=== PATIENT | female | born 1990 | race Asian ===

== ENCOUNTER 2020-02-04 21:20 | Outpatient (REF) | payer SELFPAY ==
[2020-02-08 15:47] LABS: Chlamydia Result Negative (Negative); GC Result Negative (Negative)
== END 2020-02-04 21:40 ==
LOC: NCHCN 21:20
PROVIDERS: PCP Physician Assistant Medical; Visit Provider Physician Assistant Medical
DX: Z11.3 Encounter for screening for infections with a predominantly sexual mode of transmission (principal)
CPT/HCPCS: 87491; 87591

== ENCOUNTER 2020-08-30 13:55 | Outpatient (REF) | payer SELFPAY ==
[2020-08-30 22:07] LABS: HCT 38.1 % (36.0-46.0); HGB 12.4 g/dL (11.2-15.7); MCH 29.9 pg (27.0-33.0); MCHC 32.5 % (32.0-36.0); MCV 91.8 fL (80-95); MPV 10.5 fL (8.0-11.0); Platelet Count 258 10^3/uL (130-400); RBC 4.15 10^6/uL (3.93-5.22); RDW 12.1 % (11.7-14.6); RDW-SD 40.8 fL; WBC 7.31 10^3/uL (4.4-10.8)
[2020-08-30 22:27] LABS: ALT 24 U/L (14-59); AST 14 U/L (15-37); Albumin 3.9 g/dL (3.4-5.0); Alkaline Phosphatase 45 U/L (46-116); Anion Gap 12.1 mmol/L (3-11); BUN 16 mg/dL (7-18); Bilirubin, Total 0.5 mg/dL (0.2-1.0); CO2 22.9 mmol/L (21.0-32.0); CREATININE 0.7 mg/dL (0.55-1.02); Calcium 8.8 mg/dL (8.5-10.1); Chloride 105 mmol/L (98-107); Glucose 77 mg/dL (74-106); HCG Quant, Pregnancy 16 mIU/mL (1-3); Potassium 4.1 mmol/L (3.5-5.1); Sodium 140 mmol/L (136-145); Total Protein 7.4 g/dL (6.4-8.2)
== END 2020-08-30 13:56 | disposition home or self-care (01) ==
LOC: LBN 13:55
PROVIDERS: PCP Physician Assistant Medical; Visit Provider Nurse Practitioner Family
DX: Z33.1 Pregnant state, incidental (principal); R82.998 Other abnormal findings in urine
CPT/HCPCS: 80053; 85027; 84702; 87086

== ENCOUNTER 2020-10-17 23:44 | Emergency (ER) | payer SELFPAY ==
[2020-10-17 23:48] VITALS: BP 126/86; PULSE 90; RESP 18; TEMP 36.7; O2SAT 100
[2020-10-18] VITALS (18 sets, daily range): BP systolic 104–109; BP diastolic 58–61; PULSE 70–71; O2SAT 98–100
[2020-10-18 00:15] LABS: Bilirubin Negative (Negative); Blood Negative (Negative); Clarity Clear (Clear); Glucose Negative (Negative); Ketones Negative (Negative); Leukocyte Esterase Negative (Negative); Nitrite Negative (Negative); Specific Gravity 1.015 (1.005-1.025); Urobilinogen 0.2 EU/dL (Up TO 0.2)
[2020-10-18] MEDS: Normal Saline 1,000 ML 1000 ML IV (00:16)
[2020-10-18 00:18] LABS: Lactate 0.9 mmol/L (0.6-1.4)
[2020-10-18 00:20] LABS: Abs Immature Grans 0.01 10^3/uL (0.0-0.06); Absolute Basophil Count 0.03 10^3/uL (0.0-0.2); Absolute Eosinophil Count 0.25 10^3/uL (0.0-0.7); Absolute Lymphocyte Count 2.62 10^3/uL (1.2-3.4); Absolute Monocyte Count 0.62 10^3/uL (0.1-0.8); Absolute Neutrophil Count 3.61 10^3/uL (1.2-6.7); Basophils % 0.4; Eosinophils % 3.5; HCT 37.1 % (36.0-46.0); HGB 12.1 g/dL (11.2-15.7); Immature Grans % 0.1; Lymphocytes % 36.7; MCH 30.5 pg (27.0-33.0); MCHC 32.6 % (32.0-36.0); MCV 93.5 fL (80-95); MPV 9.5 fL (8.0-11.0); Monocytes % 8.7; Neutrophils % 50.6; Nucleated RBC 0 %; Platelet Count 239 10^3/uL (130-400); RBC 3.97 10^6/uL (3.93-5.22); RDW 12.1 % (11.7-14.6); RDW-SD 41.9 fL; WBC 7.14 10^3/uL (4.4-10.8)
[2020-10-18 00:38] LABS: ALT 26 U/L (14-59); AST 13 U/L (15-37); Albumin 3.9 g/dL (3.4-5.0); Alkaline Phosphatase 39 U/L (46-116); Anion Gap 8.5 mmol/L (3-11); BUN 9 mg/dL (7-18); Bilirubin, Total 0.2 mg/dL (0.2-1.0); CO2 26.5 mmol/L (21.0-32.0); CREATININE 0.7 mg/dL (0.55-1.02); Chloride 103 mmol/L (98-107); Glucose 94 mg/dL (74-106); Magnesium 2.1 mg/dL (1.8-2.4); Potassium 3.1 mmol/L (3.5-5.1); Sodium 138 mmol/L (136-145); Total Protein 7.6 g/dL (6.4-8.2)
[2020-10-18 00:39] LABS: Lipase 103 U/L (73-393)
--- NOTE | 2020-10-18 01:00 | DI.CT_ITS ---
Exam(s) CT ABDOMEN PELVIS W EXAM: CT ABDOMEN PELVIS W INDICATION: Miscarriage, RLQ abd pain.. COMPARISON: No exams were available for comparison TECHNIQUE: FINDINGS: CT examination of the abdomen and pelvis was performed with a bolus infusion of 95 cc of Omnipaque 35 0. Images obtained through the lung bases are unremarkable except for an incidental 4 millimeter non calcified pulmonary nodule, of unlikely to be of significance in a nonsmoker in this age group. Plea se correlate clinically.. The liver is unremarkable in appearance. Gallbladder and bile ducts are CT normal. Pancreas appears normal. Spleen is unremarkable in appearance. Adrenals appear normal. The kidneys are unremarkable with no evidence of hydronephrosis, nephrolithiasis, or renal mass.. Ur inary bladder distended but otherwise unremarkable. Abdominal aorta is of normal diameter and no major vascular abnormality is seen. No abdominal wall hernia. No abdominal or pelvic adenopathy. Trace free fluid noted in the pelvis. Essentially unremarkable appearance of the ovaries. Appendix is normal. No evidence of diverticulitis or bowel obstruction. IMPRESSION: RADIATION DOSE DELIVERED: 619.77mGy.cm Total DLP 619.77mGy.cm Total DLP 13.55mGy CTDIvol RADIATION OPTIMIZATION: All CT scans at this facility use at least one of these dose optimization te chniques: automated exposure control; mA and/or kV adjustment per patient size (includes targeted exa ms where dose is matched to clinical indication); or iterative reconstruction.
[2020-10-18 01:07] LABS: HCG Quant, Pregnancy 23387 mIU/mL (1-3)
--- NOTE | 2020-10-18 01:37 | W.ED.GENAD ---
Discharge Plan Disposition Patient Disposition: HOME Condition: Good Discharge Details Clinical Impression: Abdominal pain, Incomplete miscarriage Primary Care Provider: Alan Peterson V ED Provider: Mack Anderson Discharge Instructions Instructions: Abdominal Pain (ED) Additional Instructions: At this time the CAT scan shows no evidence of appendicitis, but you still do have products of conception that are retained. He also has a small ovarian cyst which is likely a component of the cause of your pain on the right. Please take Tylenol or Motrin as needed for pain and follow-up closely with your OB doctor tomorrow. If you notice any worsening of your symptoms, or any new symptoms such as vomiting, diarrhea, fever, chills, shortness of breath, chest pain, numbness, weakness, or fainting , please return immediately to the emergency department for reevaluation. Please follow up with your primary care provider as soon as possible for reassessment and reevaluation. As always, it was a pleasure participating in your medical care today. Referrals: Macey Murphy DO [OSTEOPATHIC DOCTOR] - Medical Decision Making This is a pleasant 29-year-old female who presents today for abdominal pain. Patient is 9 to 10 weeks , however on her last ultrasound week ago they noticed that there was no heartbeat, and an empty gestational sac. Patient has not had any vaginal discharge or vaginal bleeding. She had no pain until tonight when she developed lower generalized abdominal pain which she describes as crampy and achy that comes and goes. Currently she states that she is pain-free. She did have a few episodes of vomiting at home earlier tonight. She denies any dysuria, diarrhea, hematemesis. She has been talking with her OB doctor about potential D&C. She denies any previous abdominal surgeries. This was her first . No other complaints at this time. No other modifying factors. Physical exam demonstrates very reassuring nontender nonsurgical abdomen. No vaginal discharge. Bedside ultrasound shows no evidence of fetus in the uterus. Differential at this time includes appendicitis, pain or complication from miscarriage, unlikely heterotopic . We will get an hCG level from serum, get a CT scan of the abdomen, monitor closely and reassess. 2:54 AM Laboratory work-up is returned and is relatively unremarkable. No white count bandemia or left shift. Potassium minimally low. Beta-hCG is 23,000. Urinalysis negative for infection. CT scan shows evidence of a small right ovarian cyst, and an enlarged complex uterus with concern for retained products of conception. Patient's pain remains notably unremarkable, she feels well and still does not want any pain medicines. This time symptoms are inconsistent with torsion, heterotopic , acute surgical pathology in the abdomen. Patient stable for discharge. Patient will be discharged home with recommendations for close follow-up with PCP/OB tomorrow or the next day. Discussed red flags which to return. Patient will likely need D&C this week. I have extensively reviewed the treatment plan and discharge instructions with the patient and their family. I have addressed all patient concerns at this time. The patient and family was made aware of what symptoms to monitor for that would warrant a return to the emergency department. Discussed the plan with the patient and family, they demonstrate verbal understanding and agreement with our assessment and plan at this time. The documentation in this chart was dictated using [employer] dictation software. Please excuse any dictation errors. FINDINGS: Liver: Normal. No mass. Gallbladder and bile ducts: Normal. No calcified stones. No ductal dilation. Pancreas: Normal. No ductal dilation. Spleen: Normal. No splenomegaly. Adrenal glands: Normal. No mass. Kidneys and ureters: Normal. No hydronephrosis. Stomach and bowel: Unremarkable. No obstruction. No mucosal thickening. Appendix: No evidence of appendicitis. Intraperitoneal space: Minimal cul-de-sac fluid. No free air. No significant fluid collection. Vasculature: Unremarkable. No abdominal aortic aneurysm. Lymph nodes: Unremarkable. No enlarged lymph nodes. Urinary bladder: Unremarkable as visualized. Reproductive: Enlarged heterogeneous uterus with complex heterogeneous thickened endometrium. 13 mm right ovarian cyst Bones/joints: Unremarkable. No acute fracture. Soft tissues: Unremarkable. IMPRESSION: Enlarged complex uterus with complex appearance in the endometrium. Consider pelvic ultrasound for further characterization. Retained products of conception not excluded No CT evidence for appendicitis 13 mm right ovarian cyst. Minimal cul-de-sac fluid Thank you for allowing us to participate in the care of your patient. Dictated and Authenticated by: Pee Lopez MD 10/18/2020 2:40 AM Eastern Time ([place] & [place]) HPI General Date/Time Provider Initiated Documentation: 10/17/20 23:50. HPI Narrative: This is a pleasant 29-year-old female who presents today for abdominal pain. Patient is 9 to 10 weeks , however on her last ultrasound week ago they noticed that there was no heartbeat, and an empty gestational sac. Patient has not had any vaginal discharge or vaginal bleeding. She had no pain until tonight when she developed lower generalized abdominal pain which she describes as crampy and achy that comes and goes. Currently she states that she is pain-free. She did have a few episodes of vomiting at home earlier tonight. She denies any dysuria, diarrhea, hematemesis. She has been talking with her OB doctor about potential D&C. She denies any previous abdominal surgeries. This was her first . No other complaints at this time. No other modifying factors. Related Data Allergies Allergy/AdvReac Type Severity Reaction Status Date / Time No Known Allergies Allergy Verified 10/17/20 23:58 General Stated Complaint: Abd Prob HELEN: 3 Review of Systems All systems reviewed & are unremarkable except as noted in HPI and below PFSH Medical History Early stage of Nausea and vomiting during Social History Smoking/Tobacco Use Status: Never Smoking risk assessment performed?: Yes Alcohol Intake: never Substance use type: does not use Do you feel safe at home: Yes Do you feel safe in your relationship?: Yes Exam Narrative Exam Narrative: 1.Const: Well-nourished, Well-developed, appearing stated age 2.Eyes: PERRL, no conjunctival injection, and symmetrical lids. 3.ENT: Atraumatic external nose and ears. Moist MM. Neck: Symmetric, trachea midline, No thyromegaly. 4.CVS: +S1/S2, No murmurs or gallops. Peripheral pulses 2+ and equal in all extremities. Brisk capillary refill in all extremities. 5.RESP: Unlabored respiratory effort. Clear to auscultation bilaterally. No wheezes rales or rhonchi 6.GI: Soft, Nontender/Nondistended, No hepatosplenomegaly. No guarding or rebound. No tenderness in the pelvic region, no pain at McBurney's point, negative Molina sign. 7.MSK: Normocephalic/Atraumatic, Extremities w/o deformity or ttp No cyanosis or clubbing, Normal movement of all extremities 8.Skin: Warm, Dry. No rashes or lesions. 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 Sensation grossly intact, no focal neurologic deficits. 10.Psych: (AAO) x3. Appropriate mood and affect Course Vital Signs Vital signs: Vital Signs Temperature 36.7 C 10/17/20 23:48 Pulse 90 10/17/20 23:48 Respiratory Rate 18 10/17/20 23:48 Blood Pressure 126/86 10/17/20 23:48 Pulse Oximetry 100 10/17/20 23:48 Temperature 36.7 C 10/17/20 23:48 Temperature Source Skin 10/17/20 23:48 Pulse 90 10/17/20 23:48 Respiratory Rate 18 10/17/20 23:48 Respiratory Effort Non-Labored 10/17/20 23:59 Blood Pressure 126/86 10/17/20 23:48 Blood Pressure Position Sitting 10/17/20 23:48 Pulse Oximetry 100 10/17/20 23:48 Oxygen Delivery Method Room Air 10/17/20 23:48 Oxygen Flow Rate 0 10/17/20 23:48 Pain Level 9 10/17/20 23:59 Lab/Test Results Lab/Test Results: Laboratory Tests Range/Units 10/18/20 10/18/20 10/18/20 00:00 00:10 00:10 WBC (4.4-10.8) 10^3/uL 7.14 RBC (3.93-5.22) 10^6/uL 3.97 Hgb (11.2-15.7) g/dL 12.1 Hct (36.0-46.0) % 37.1 MCV (80-95) fL 93.5 MCH (27.0-33.0) pg 30.5 MCHC (32.0-36.0) % 32.6 RDW (11.7-14.6) % 12.1 Plt Count (130-400) 10^3/uL 239 MPV (8.0-11.0) fL 9.5 Immature Gran % 0.1 Neutrophils % 50.6 Lymphocytes % 36.7 Monocytes % 8.7 Eosinophils % 3.5 Basophils % 0.4 Nucleated RBC % % 0 Absolute Neutrophils (1.2-6.7) 10^3/uL 3.61 Absolute Lymphocytes (1.2-3.4) 10^3/uL 2.62 Absolute Monocytes (0.1-0.8) 10^3/uL 0.62 Absolute Eosinophils (0.0-0.7) 10^3/uL 0.25 Absolute Basophils (0.0-0.2) 10^3/uL 0.03 VBG Lactate (0.6-1.4) mmol/L Sodium (136-145) mmol/L 138 Potassium (3.5-5.1) mmol/L 3.1 L Chloride (98-107) mmol/L 103 Carbon Dioxide (21.0-32.0) mmol/L 26.5 Anion Gap (3-11) mmol/L 8.5 BUN (7-18) mg/dL 9 Creatinine (0.55-1.02) mg/dL 0.7 Estimated GFR/1.73 m2 (mL/min/1.73m2) >= 60.00 Glucose (74-106) mg/dL 94 Calcium (8.5-10.1) mg/dL 9.0 Magnesium (1.8-2.4) mg/dL 2.1 Total Bilirubin (0.2-1.0) mg/dL 0.2 AST (15-37) U/L 13 L ALT (14-59) U/L 26 Alkaline Phosphatase (46-116) U/L 39 L Total Protein (6.4-8.2) g/dL 7.6 Albumin (3.4-5.0) g/dL 3.9 Lipase (73-393) U/L Beta HCG, Quant (1-3) mIU/mL Urine Color (Yellow) Yellow Urine Clarity (Clear) Clear Urine pH (5-8) 7.0 Ur Specific [place] (1.005-1.025) 1.015 Urine Protein (Negative) mg/dL Negative Urine Ketones (Negative) mg/dL Negative Urine Blood (Negative) Negative Urine Nitrite (Negative) Negative Urine Bilirubin (Negative) Negative Urine Urobilinogen (Up TO 0.2) EU/dL 0.2 Ur Leukocyte Esterase (Negative) Negative Urine Glucose (Negative) mg/dL Negative Patient ABO/Rh Range/Units 10/18/20 10/18/20 10/18/20 00:10 00:10 00:10 WBC (4.4-10.8) 10^3/uL RBC (3.93-5.22) 10^6/uL Hgb (11.2-15.7) g/dL Hct (36.0-46.0) % MCV (80-95) fL MCH (27.0-33.0) pg MCHC (32.0-36.0) % RDW (11.7-14.6) % Plt Count (130-400) 10^3/uL MPV (8.0-11.0) fL Immature Gran % Neutrophils % Lymphocytes % Monocytes % Eosinophils % Basophils % Nucleated RBC % % Absolute Neutrophils (1.2-6.7) 10^3/uL Absolute Lymphocytes (1.2-3.4) 10^3/uL Absolute Monocytes (0.1-0.8) 10^3/uL Absolute Eosinophils (0.0-0.7) 10^3/uL Absolute Basophils (0.0-0.2) 10^3/uL VBG Lactate (0.6-1.4) mmol/L 0.9 Sodium (136-145) mmol/L Potassium (3.5-5.1) mmol/L Chloride (98-107) mmol/L Carbon Dioxide (21.0-32.0) mmol/L Anion Gap (3-11) mmol/L BUN (7-18) mg/dL Creatinine (0.55-1.02) mg/dL Estimated GFR/1.73 m2 (mL/min/1.73m2) Glucose (74-106) mg/dL Calcium (8.5-10.1) mg/dL Magnesium (1.8-2.4) mg/dL Total Bilirubin (0.2-1.0) mg/dL AST (15-37) U/L ALT (14-59) U/L Alkaline Phosphatase (46-116) U/L Total Protein (6.4-8.2) g/dL Albumin (3.4-5.0) g/dL Lipase (73-393) U/L 103 Beta HCG, Quant (1-3) mIU/mL 93326 H Urine Color (Yellow) Urine Clarity (Clear) Urine pH (5-8) Ur Specific [place] (1.005-1.025) Urine Protein (Negative) mg/dL Urine Ketones (Negative) mg/dL Urine Blood (Negative) Urine Nitrite (Negative) Urine Bilirubin (Negative) Urine Urobilinogen (Up TO 0.2) EU/dL Ur Leukocyte Esterase (Negative) Urine Glucose (Negative) mg/dL Patient ABO/Rh A Positive
[2020-10-18] MEDS: Omnipaque 350 MG/ML 100 ML BTL IJ (01:40)
[2020-10-18] MEDS: Normal Saline - Diluent 50 ML VIAL IV (01:41)
[2020-10-18] MEDS: Normal Saline Flush 10 ML SYR IVP (01:42)
--- NOTE | 2020-10-18 02:40 | DI.VRAD_ITS ---
PROCEDURE INFORMATION: Exam: CT Abdomen And Pelvis With Contrast Exam date and time: 10/18/2020 1:10 AM Age: 29 years old Clinical indication: Abdominal pain; Localized; Right lower quadrant (rlq); Patient HX: Miscarriage, rlq abd pain. TECHNIQUE: Imaging protocol: Computed tomography of the abdomen and pelvis with contrast. Radiation optimization: All CT scans at this facility use at least one of these dose optimization techniques: automated exposure control; mA and/or kV adjustment per patient size (includes targeted exams where dose is matched to clinical indication); or iterative reconstruction. Contrast material: OMNIPAQUE 350; Contrast volume: 95 ml; Contrast route: INTRAVENOUS (IV); COMPARISON: No relevant prior studies available. FINDINGS: Liver: Normal. No mass. Gallbladder and bile ducts: Normal. No calcified stones. No ductal dilation. Pancreas: Normal. No ductal dilation. Spleen: Normal. No splenomegaly. Adrenal glands: Normal. No mass. Kidneys and ureters: Normal. No hydronephrosis. Stomach and bowel: Unremarkable. No obstruction. No mucosal thickening. Appendix: No evidence of appendicitis. Intraperitoneal space: Minimal cul-de-sac fluid. No free air. No significant fluid collection. Vasculature: Unremarkable. No abdominal aortic aneurysm. Lymph nodes: Unremarkable. No enlarged lymph nodes. Urinary bladder: Unremarkable as visualized. Reproductive: Enlarged heterogeneous uterus with complex heterogeneous thickened endometrium. 13 mm right ovarian cyst Bones/joints: Unremarkable. No acute fracture. Soft tissues: Unremarkable. IMPRESSION: Enlarged complex uterus with complex appearance in the endometrium. Consider pelvic ultrasound for further characterization. Retained products of conception not excluded No CT evidence for appendicitis 13 mm right ovarian cyst. Minimal cul-de-sac fluid Dictated and Authenticated by: Pee Lopez MD. Ordering:LANI Giron MD
--- NOTE | 2020-10-18 06:46 | NUR.NOTE ---
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
== END 2020-10-18 02:57 | disposition home or self-care (01) ==
PROVIDERS: Emergency Provider Student in an Organized Health Care Education/Training Program; PCP Physician Assistant Medical
DX: O03.4 Incomplete spontaneous abortion without complication (principal); R10.9 Unspecified abdominal pain
CPT/HCPCS: 80053; 83690; 86900; 86901; 96360; 99285; 74177; 81003; 83605; 83735; 84702; 85025; 99284; J3490

== ENCOUNTER 2020-10-19 02:00 | Outpatient (CLI) | payer SELFPAY ==
[2020-10-19 10:36] LABS: Abs Immature Grans 0.01 10^3/uL (0.0-0.06); Absolute Basophil Count 0.02 10^3/uL (0.0-0.2); Absolute Eosinophil Count 0.17 10^3/uL (0.0-0.7); Absolute Neutrophil Count 4.17 10^3/uL (1.2-6.7); Basophils % 0.3; Eosinophils % 2.7; HCT 37.1 % (36.0-46.0); HGB 12.1 g/dL (11.2-15.7); Immature Grans % 0.2; Lymphocytes % 23.5; MCH 30.4 pg (27.0-33.0); MCHC 32.6 % (32.0-36.0); MCV 93.2 fL (80-95); MPV 9.6 fL (8.0-11.0); Monocytes % 7.8; Neutrophils % 65.5; Nucleated RBC 0 %; Platelet Count 223 10^3/uL (130-400); RBC 3.98 10^6/uL (3.93-5.22); RDW 12.1 % (11.7-14.6); RDW-SD 42.2 fL; WBC 6.37 10^3/uL (4.4-10.8)
[2020-10-19 16:07] LABS: Source Nasal/Nares
[2020-10-19 21:55] LABS: COVID-19 PCR Negative (Negative)
== END 2020-10-19 02:01 | disposition home or self-care (01) ==
LOC: LBO 02:01
PROVIDERS: PCP Physician Assistant Medical; Visit Provider Obstetrics & Gynecology
DX: O03.9 Complete or unspecified spontaneous abortion without complication (principal); Z20.822 Contact with and (suspected) exposure to COVID-19; Z01.818 Encounter for other preprocedural examination; Z01.812 Encounter for preprocedural laboratory examination
CPT/HCPCS: 36415; 86850; 86900; 86901; 87635; 85025

== ENCOUNTER 2020-10-20 06:20 | Day surgery (SDC) | payer SELFPAY ==
[2020-10-20 06:25] VITALS: BP 111/67; PULSE 78; RESP 16; TEMP 36.8; O2SAT 99
[2020-10-20] MEDS: Doxycycline Hyclate 100 MG CAP 200 MG PO (06:57)
[2020-10-20] MEDS: Lactated Ringers 1,000 ML 125 ML IV (06:58)
--- NOTE | 2020-10-20 07:04 | W.ANESPRE ---
General Info Date of Service Date Performed: 10/20/20 Height: 5 ft 7 in Weight: 64.3 kg Body Mass Index (BMI): 22.1 Surgical Procedure: Operation Date: 10/20/20 07:40 Proposed Procedures Side Surgeon p Dilation & Curettage with Suction Macey Murphy DO Meds Allergies and Home Medications Allergies Allergy/AdvReac Type Severity Reaction Status Date / Time No Known Allergies Allergy Verified 10/20/20 06:35 Home Medication Medication Instructions Recorded Unknown [No Known Home Meds] 10/18/20 Current Visit Medications: Current Medications Generic Name Dose Route Start Last Admin Trade Name Freq PRN Reason Stop Dose Admin Doxycycline Hyclate 200 mg 10/20/20 06:00 10/20/20 06:57 Doxycycline Hyclate 100 Mg Cap PO 10/20/20 16:00 200 mg PREOP LIZETT Administration Ringer's Solution 1,000 mls @ 125 mls/hr 10/20/20 06:00 10/20/20 06:58 IV 11/18/20 23:59 125 mls/hr INFUSION LIZETT Administration IV Miscellaneous Supplies 1 each 10/20/20 06:00 Iv Access IV 11/18/20 23:59 DIRECTED LIZETT Sodium Chloride 0 ml 10/20/20 06:00 Normal Saline Flush 10 Ml Syr IV 11/18/20 23:59 PRN PRN Sodium Chloride 0 ml 10/20/20 06:00 Normal Saline 10 Ml Vial IJ 11/18/20 23:59 DIRECTED PRN Sterile Water 0 ml 10/20/20 06:00 Water,Injection,Sterile 10 Ml Vial IJ 11/18/20 23:59 DIRECTED PRN PFSH Active Problems Active Problems: Problem Status Onset Code Abdominal pain R10.9 Incomplete miscarriage O03.4 Nausea and vomiting during O21.9 Early stage of Z34.90 Medical History Medical History Early stage of Nausea and vomiting during Tobacco Smoking/Tobacco Use Status: Never Alcohol Alcohol Intake: never Substance Use Substance use type: does not use Vital Signs and Lab Results Vital Signs Most Recent Vital Signs in EMR: Most Recent Vital Signs Temp Pulse Resp BP Pulse Ox 36.8 C 78 16 111/67 99 10/20/20 06:25 10/20/20 06:25 10/20/20 06:25 10/20/20 06:25 10/20/20 06:25 Lab Results Blood Type / Crossmatch: Patient ABO/Rh A Positive 10/19/20 10:10 10/19/20 Antibody Screen NEGATIVE 10/19/20 10:10 10/19/20 Complete Blood Count: White Blood Count 6.37 10^3/uL (4.4-10.8) 10/19/20 10:10 10/19/20 Red Blood Count 3.98 10^6/uL (3.93-5.22) 10/19/20 10:10 10/19/20 Hemoglobin 12.1 g/dL (11.2-15.7) 10/19/20 10:10 10/19/20 Hematocrit 37.1 % (36.0-46.0) 10/19/20 10:10 10/19/20 Platelet Count 223 10^3/uL (130-400) 10/19/20 10:10 10/19/20 Venous Blood Lactate 0.9 mmol/L (0.6-1.4) 10/18/20 00:10 10/18/20 Complete Metabolic Panel: Sodium Level 138 mmol/L (136-145) 10/18/20 00:10 10/18/20 Potassium Level 3.1 mmol/L (3.5-5.1) L 10/18/20 00:10 10/18/20 Chloride Level 103 mmol/L (98-107) 10/18/20 00:10 10/18/20 Carbon Dioxide Level 26.5 mmol/L (21.0-32.0) 10/18/20 00:10 10/18/20 Blood Urea Nitrogen 9 mg/dL (7-18) 10/18/20 00:10 10/18/20 Creatinine 0.7 mg/dL (0.55-1.02) 10/18/20 00:10 10/18/20 Estimated GFR/1.73 m2 >= 60.00 (mL/min/1.73m2) 10/18/20 00:10 10/18/20 Magnesium Level 2.1 mg/dL (1.8-2.4) 10/18/20 00:10 10/18/20 Calcium Level 9.0 mg/dL (8.5-10.1) 10/18/20 00:10 10/18/20 Albumin 3.9 g/dL (3.4-5.0) 10/18/20 00:10 10/18/20 Glucose Level 94 mg/dL (74-106) 10/18/20 00:10 10/18/20 Liver Function Panel: Alanine Aminotransferase (ALT/SGPT) 26 U/L (14-59) 10/18/20 00:10 10/18/20 Aspartate Amino Transf (AST/SGOT) 13 U/L (15-37) L 10/18/20 00:10 10/18/20 Coagulation Panel: No Data to Display Cardiac Panel: No Data to Display Arterial Blood Gas: No Data to Display Venous Blood Gas: No Data to Display Pancreas Panel: Lipase 103 U/L (73-393) 10/18/20 00:10 10/18/20 Thyroid Panel: No Data to Display Infectious Disease: Coronavirus (COVID-19)(PCR) Negative (Negative) 10/19/20 09:35 10/19/20 Coronavirus 2019 Source Nasal/Nares 10/19/20 09:35 10/19/20 Blood Cultures: No Data to Display Toxicology Panel: No Data to Display Panel: Beta HCG, Quantitative 68675 mIU/mL (1-3) H 10/18/20 00:10 10/18/20 Anesthesia Assessment and Plan Anesthesia History Personal History: No History of Anesthesia Complications Family History: No Family History of Anesthesia Complications Exercise Tolerance Exercise Tolerance: Metabolic Equivalents>4 Pertinent Negatives Pertinent Negatives: No Symptoms of GERD, No Major Cardiovascular Symptoms or Complaints, No Major Pulmonary Symptoms or Complaints and No History of CVA/TIA Cardiac & Pulmonary Exam Cardiac Exam: Normal S1/S2 Heart Sounds Pulmonary Exam: Clear Bilateral Breath Sounds Airway Exam Known Difficult Airway: No Mallampati Class: 1 Mouth Opening: Normal (> 3cm) Thyromental Distance: Greater than 3 cm Neck Range of Motion: Full ROM Neck Circumference: Normal Teeth Condition: Normal Dentition ASA Classification ASA Score: ASA 2 Emergency Case?: No NPO Status NPO Status: NPO Clears >2 hours, Solids >8 hours Status Status: Not Relevant due to Medical History Anesthesia Plan Resuscitation Status: Full Code Anesthesia Technique: General Anesthesia Airway Planned: Natural Airway Pain Management: Surgeon and patient request nerve block Monitors Used: Standard Monitors
[2020-10-20 07:06] VITALS: BMI 22.1
--- NOTE | 2020-10-20 07:40 | POCSPONT_PTH ---
PATIENT: Maday Zapata LOC: [facility] U#:[id number] AGE/SX: 29/F ROOM: RE10/20/[address]: Macey Murphy DO : 1990 BED: DIS: 10/20/2020 SPEC #: [id number] RECD: 10/20/20 12:43 STATUS: ARABELLA REQ #: [id number] YURI: 10/20/20 07:[address]: Macey Murphy DEPT: Surgical Specimen RECD BY: Thania Ocampo ENTERED: 10/20/20 12:44 SP TYPE: POCSPONT ERNESTO DR: Alan Peterson V Tissues: 1 - ,SPONTANEOUS Procedures: GROSS AND MICRO LEVEL 4 Comments: [id number]
--- NOTE | 2020-10-20 07:59 | W.PM.OP ---
Date of service: 10/20/20 Time of Service: 07:59 Operative Note Operative Note DATE OF PROCEDURE: 10/20/20 PRE-OP DIAGNOSIS: Missed POST-OP DIAGNOSIS: same PROCEDURE: Dilation and curettage with suction SURGEON: Macey Murphy ANESTHESIA TYPE: General:No Airway Refer to Anesthesia Record ESTIMATED BLOOD LOSS: 50 PATHOLOGY: other (Uterine contents) COMPLICATIONS: None Patient was transported to: same day Indications: Missed Findings: Moderate products of conception Procedure Description: Patient was taken the operating suite with an IV running where she is placed in the dorsal supine position. Anesthesia was administered. She was then placed in the modified dorsal lithotomy position and prepped and draped in the usual sterile fashion. Exam under anesthesia revealed a uterus that was midline and mobile approximately 8 weeks size. A weighted speculum was placed into the posterior vaginal vault and a single-tooth tenaculum used to grasp the anterior lip of the cervix. Cervical os dilated to the point that an 8 [place] suction curette could be passed with ease. Uterus sounded to 10 cm. With gentle suction curettage, there was the return of my products of conception. Once suction curette was complete gentle sharp curettage was performed where the coarse cry of the uterus could be felt in all 4 quadrants. A second pass of the suction curette was undertaken for scant tissue. Uterus was then contracted and midline and mobile. There is what feels to be a posterior lower uterine segment fibroid present. This will be evaluated with ultrasound in the non state. Single-tooth tenaculum had been removed as was speculum. Tenaculum sites were hemostatic. Patient awoke from anesthesia and was taken to the same-day surgical area in stable condition. Complications: None apparent EBL: 50 mL Pathology: Uterine contents consistent with products of conception for examination.
[2020-10-20 08:00] VITALS: BP 122/72; PULSE 94; RESP 16; TEMP 36.3; O2SAT 100
--- NOTE | 2020-10-20 08:01 | W.ANESPOSTOP ---
Postoperative Evaluation Date, Time and Location Date Performed: 10/20/20 Time Performed: 08:02 Patient Location: Day Surgery Unit Vital Signs Most Recent Imported Vital Signs: Most Recent Vital Signs Temp Pulse Resp BP Pulse Ox 36.8 C 78 16 111/67 99 10/20/20 06:25 10/20/20 06:25 10/20/20 06:25 10/20/20 06:25 10/20/20 06:25 Most Recent Manually Entered Vital Signs: Adult Blood Pressure: 122/72 Heart Rate: 99 Respirations: 10 Oxygen Saturation (%): 100 Temperature (C): 36.3 C Pain Score (0-10 Scale): 0 Pain Score Most Recent Pain Score: Most Recent Pain Score Pain Level 0 10/20/20 06:25 Assessment Mental Status: Awake (Alert & Oriented to Patient Baseline) Airway and Respiratory Function: Patent airway with normal (patient baseline) respiratory exam Cardiovascular Function: Hemodynamically Stable Hydration Status: Adequately Hydrated Nausea & Vomiting: No Nausea or Vomiting Pain: Pt. Denies Any Pain Peripheral Nerve Block: Patient did not receive a nerve block
[2020-10-20 08:02] VITALS: BP 122/72; PULSE 99; RESP 10; TEMPC 36.3; O2SAT 100
[2020-10-20 08:40] VITALS: BP 109/76; PULSE 74; RESP 18; TEMP 36.2; O2SAT 100
== END 2020-10-20 09:45 | disposition home or self-care (01) ==
PROVIDERS: PCP Physician Assistant Medical; Visit Provider Obstetrics & Gynecology
PROC: (CPT 59820; principal; 2020-10-20 07:30)
DX: O02.1 Missed abortion (principal)
CPT/HCPCS: 59820; 88305; J1100; J1200; J1885; J2001; J2250; J2405

== ENCOUNTER 2021-10-21 15:23 | Outpatient (REF) | payer SELFPAY ==
[2021-10-22 12:36] LABS: COVID-19 RT-PCR UVMMC Result Negative (Negative)
== END 2021-10-21 15:24 | disposition home or self-care (01) ==
LOC: LBN 15:23
PROVIDERS: PCP Physician Assistant Medical; Visit Provider Physician Assistant Medical
DX: J02.9 Acute pharyngitis, unspecified (principal)
CPT/HCPCS: U0003; 87070

== ENCOUNTER 2022-01-17 21:58 | Emergency (ER) | payer BC, SELFPAY ==
[2022-01-17 22:10] VITALS: BP 111/68; PULSE 79; RESP 22; TEMP 36.7; O2SAT 100
--- NOTE | 2022-01-17 22:30 | DI.RAD_ITS ---
Exam(s) XR RIBS LT W PA LAT CHEST EXAM: XR RIBS LT W PA LAT CHEST CLINICAL HISTORY: left chest pain TECHNIQUE: COMPARISON: No exams were available for comparison FINDINGS: PA and lateral views of chest and 2 additional views of the left ribs were obtained. Heart is not en larged. Lungs are clear. No pleural effusion. No rib abnormality seen. IMPRESSION: Negative examination of the chest and left ribs RADIATION DOSE DELIVERED: Total DLP
--- NOTE | 2022-01-17 22:30 | RT.EKG_ITS ---
APPROVED REPORT Exam: Resting ECG Reason for Exam: chest pain Patient Location: E HR:83 bpm ECG Measurements Heart Rate 83 AXIS AZ 140 P 37 QRSd 70 QRS 71 QT 379 T 21 QTc 447 Conclusion Sinus rhythm...normal P axis, V-rate 60- 99 Physician: no stemi
--- NOTE | 2022-01-17 22:40 | ED.GENADUL_ITS ---
Discharge Plan Disposition Patient Disposition: Home Condition: Good Discharge Details Clinical Impression: Pain in rib Primary Care Provider: Alan Peterson V ED Provider: Mack Anderson Home Meds and New Rx's Prescriptions: New cyclobenzaprine 10 mg tablet 10 mg PO TID Qty: 14 0RF No Action ibuprofen 800 mg tablet 800 mg PO Q8H PRNQty: 30 0RF Discharge Instructions Instructions: Chest Wall Pain (ED) Additional Instructions: At this time the x-ray shows no evidence of fracture. I suspect there may be a tiny crack that we can see or you could have a muscle spasm causing the pain. Please take muscle relaxants as needed for breakthrough pain. Please take Tylenol and Motrin use ice or heating pad on your ribs as well. Do not drive, climb ladders, swim, or operate heavy machinery or any firearms while taking the Flexeril. If you notice any worsening of your symptoms, or any new symptoms such as vomiting, diarrhea, fever, chills, shortness of breath, chest pain, numbness, weakness, or fainting , please return immediately to the emergency department for reevaluation. Please follow up with your primary care provider as soon as possible for reassessment and reevaluation. As always, it was a pleasure participating in your medical care today. Referrals: Alan Peterson V [Primary Care Provider] - Discharge Data Discharge Date/Time-TO BE ENTERED AT DEPARTURE: 01/18/22 01:44 Medical Decision Making <Nicho Gomez NP - Last Filed: 01/23/22 15:45> Patient presenting to the emergency department for chief complaint of left chest wall pain. She states this started at work when she was reaching across but denies any heavy lifting. Does state slight worsening with some movement or laying on left side. Patient denies any injury or trauma, rapid heart rate, swelling of hands or feet. Does state some pain with inspiration. Physical exam is unremarkable and could not appreciate reproducible chest pain. She did state some tenderness to palpation of mid axillary line approximately the fifth rib but again I did not appreciate much discomfort when palpating this area. No obvious rash or signs of trauma, and exam is otherwise unremarkable. Suspect chest wall pain or strain but will perform standard ER work-up for chest pain given some pain with inspiration and shortness of breath reported. Pending results we will give patient lidocaine patch and ketorolac. Please see physician interpretation for full interpretation of EKG but upon my review patient is in sinus rhythm with a rate of 83, and no acute ischemic findings are noted <Mack Anderson, - Last Filed: 01/18/22 02:20> Patient presenting to the emergency department for chief complaint of left chest wall pain. She states this started at work when she was reaching across but denies any heavy lifting. Does state slight worsening with some movement or laying on left side. Patient denies any injury or trauma, rapid heart rate, swelling of hands or feet. Does state some pain with inspiration. Physical exam is unremarkable and could not appreciate reproducible chest pain. She did state some tenderness to palpation of mid axillary line approximately the fifth rib but again I did not appreciate much discomfort when palpating this area. No obvious rash or signs of trauma, and exam is otherwise unremarkable. Suspect chest wall pain or strain but will perform standard ER work-up for chest pain given some pain with inspiration and shortness of breath reported. Pending results we will give patient lidocaine patch and ketorolac. Please see physician interpretation for full interpretation of EKG but upon my review patient is in sinus rhythm with a rate of 83, and no acute ischemic findings are noted Dr. Anderson's documentation: Case is signed out awaiting labs and chest x-ray reassessment. On reassessment patient's pain is mildly improved. Laboratory work-up including D-dimer and troponin are normal. EKG stable. Chest x-ray negative for acute process. Patient feels better. She states that the Flexeril helped the most. We will give her some Flexeril for home use. Suspect intercostal spasm or small fracture that cannot be seen on x-ray. No evidence of pneumothorax dissection or ACS. I have extensively reviewed the treatment plan and discharge instructions with the patient and their family. I have addressed all patient concerns at this time. The patient and family was made aware of what symptoms to monitor for that would warrant a return to the emergency department. Discussed the plan with the patient and family, they demonstrate verbal understanding and agreement with our assessment and plan at this time. The documentation in this chart was dictated using [employer] dictation software. Please excuse any dictation errors. FINDINGS: Bones/joints: No acute fracture with attention to the left-sided ribs. Soft tissues: Normal. IMPRESSION: No acute fracture with attention to the left-sided ribs. Sign Out No HPI <KERWIN Zamora Last Filed: 01/23/22 15:45> General Mode of arrival: ambulatory . Date/Time Provider Initiated Documentation: 01/17/22 22:02 . Limitations to Documentation: no limitations . Information obtained by: patient and RN notes reviewed . History of Present Illness 31 year old F presents to the emergency department with the chief complaint of left chest wall pain , described as moderate, with intensity rated at 8. Quality is described as aching and sharp, and is localized to the chest. Patient started experiencing this day(s) (3) and it has been constant. No relieving factors improve symptom(s), Movement worsens symptoms . Patient notes no other symptoms.. Patient did receive the following treatments prior to arrival, other Related Data Home Medications Medication Instructions Recorded Confirmed ibuprofen 800 mg tablet 800 mg PO Q8H PRN #30 tabs 10/20/20 01/17/22 cyclobenzaprine 10 mg tablet 10 mg PO TID #14 tabs 01/18/22 Previous Rx's Medication Instructions Recorded ibuprofen 800 mg tablet 800 mg PO Q8H PRN #30 tabs 10/20/20 cyclobenzaprine 10 mg tablet 10 mg PO TID #14 tabs 01/18/22 Allergies Allergy/AdvReac Type Severity Reaction Status Date / Time No Known Allergies Allergy Verified 01/17/22 22:09 General Stated Complaint: Chest/Rib HELEN: 3 Review of Systems <KERWIN Zamora Last Filed: 01/23/22 15:45> Constitutional Constitutional: Denies chills, Denies fever(s) and Denies malaise Cardiovascular Cardiovascular: Reports as per HPI, Reports chest pain, Denies chest pain with activity, Denies syncope, Denies irregular heart rhythm and Denies palpitations Respiratory Respiratory: Denies cough, Denies hemoptysis and Reports pain on inspiration Gastrointestinal Gastrointestinal: Denies abdominal pain, Denies nausea and Denies vomiting Integumentary/Breasts Skin/Breast: Denies rash Neurologic Neurologic: Denies syncope Psychiatric Psychiatric: Denies anxiety Endocrine Endocrine: Denies cold intolerance, Denies heat intolerance and Denies palpitations PFSH <KERWIN Zamora Last Filed: 01/23/22 15:45> All Active Problems (Updated 01/18/22 @ 01:27 by Mack Anderson DO) Pain in rib (Acute) Delayed menses (Acute) S/P dilation and curettage (Acute) Abdominal pain (Acute) Incomplete miscarriage (Acute) Nausea and vomiting during (Acute) Early stage of (Acute) Social History Smoking/Tobacco Use Status: Never Smoking risk assessment performed?: Yes Alcohol Intake: never Drug use: Never Substance use type: does not use Do you feel safe at home: Yes Do you feel safe in your relationship?: Yes History History 1 Para Hx # Term Pregnancies Multiple births Hx # Pregnancies Ectopic pregnancies AB induced Hx Number of Living Children AB spontaneous 1 Past Pregnancies Del. Date GA/Weeks # Preg Succ Route Wgt Sex Labor Lgth Anesth esia Location [facility] 10/20/20 Exam <Nicho Gomez NP - Last Filed: 01/23/22 15:45> Const General: cooperative, healthy appearing, comfortable, no acute distress, not diaphoretic and not ill appearing Nutritional Appearance: average body habitus Orientation: alert, awake and oriented x3 Limitations: mental status not altered Neck Neck: normal visual inspection, full ROM, trachea midline, supple and no anterior neck swelling Thyroid: thyroid normal Carotids: normal carotid upstroke and no bruits Chest Chest: normal inspection of the chest, normal palpation of entire chest wall, no localized rib tenderness and no tenderness Breast inspection: normal inspection of the breasts and normal inspection of the axillae Resp Effort & Inspection: normal respiratory effort and able to speak in complete sentences Auscultation: clear to auscultation bilaterally Cardio Jugular venous pressure: no JVD Palpation: normal PMI Rate: regular rate Rhythm: regular rhythm Heart Sounds: S1 normal, S2 normal, no click, no gallops, no murmurs and no rubs Bruits: no abdominal aortic bruits and no carotid bruits Pulses: radial pulses present bilaterally 2+ GI Inspection: normal to inspection Palpation: soft, no aortic enlargement, no pulsatile masses and nontender Auscultation: normal bowel sounds Skin General skin exam: no rashes or lesions noted Neuro General: patient alert, patient awake, patient oriented x3, tone normal and moves all extremities Course <Nicho Gomez NP - Last Filed: 01/23/22 15:45> Vital Signs Vital signs: Vital Signs Temperature 36.7 C 01/17/22 22:10 Pulse 79 01/17/22 22:10 Respiratory Rate 22 01/17/22 22:10 Blood Pressure 111/68 01/17/22 22:10 Pulse Oximetry 100 01/17/22 22:10 Temperature 36.7 C 01/17/22 22:10 Temperature Source Temporal Artery Scan 01/17/22 22:10 Pulse 79 01/17/22 22:10 Respiratory Rate 22 01/17/22 22:10 Respiratory Effort Non-Labored 01/17/22 22:20 Respiratory Depth Normal 01/17/22 22:20 Respiratory Pattern Normal 01/17/22 22:20 Blood Pressure 111/68 01/17/22 22:10 Blood Pressure Position Sitting 01/17/22 22:10 Pulse Oximetry 100 01/17/22 22:10 Oxygen Delivery Method Room Air 01/17/22 22:10 Oxygen Flow Rate 0 01/17/22 22:10 Pain Level 8 01/17/22 22:20 Sign Out <Nicho Gomez NP - Last Filed: 01/23/22 15:45> Sign Out Data: Sign Out Comment: Patient pending D-dimer, and chest x-ray results along with reassessment pending dispo. Last updated by Nicho Gomez NP at 01/17/22 23:34
[2022-01-17] MEDS: Ketorolac 30 MG/ML VIAL IVP (22:59)
[2022-01-17 23:05] LABS: Abs Immature Grans 0.01 10^3/uL (0.0-0.06); Absolute Basophil Count 0.05 10^3/uL (0.0-0.2); Absolute Eosinophil Count 0.58 10^3/uL (0.0-0.7); Absolute Lymphocyte Count 2.55 10^3/uL (1.2-3.4); Absolute Monocyte Count 0.47 10^3/uL (0.1-0.8); Absolute Neutrophil Count 3.03 10^3/uL (1.2-6.7); Basophils % 0.7; Eosinophils % 8.7; HCT 37.5 % (36.0-46.0); HGB 12.2 g/dL (11.2-15.7); Immature Grans % 0.1; Lymphocytes % 38.1; MCH 30.4 pg (27.0-33.0); MCHC 32.5 % (32.0-36.0); MCV 94 fL (80-95); MPV 9.9 fL (8.0-11.0); Neutrophils % 45.4; Platelet Count 250 10^3/uL (130-400); RBC 4.01 10^6/uL (3.93-5.22); RDW 11.9 % (11.7-14.6); RDW-SD 41.1 fL; WBC 6.69 10^3/uL (4.4-10.8)
[2022-01-17 23:24] LABS: ALT 20 U/L (14-59); AST 11 U/L (15-37); Alkaline Phosphatase 52 U/L (46-116); Anion Gap 6.3 mmol/L (3-11); BUN 14 mg/dL (7-18); Bilirubin, Total 0.2 mg/dL (0.2-1.0); CO2 31.7 mmol/L (21.0-32.0); Calcium 8.6 mg/dL (8.5-10.1); Chloride 104 mmol/L (98-107); Estimated GFR 77.72 (mL/min/1.73m2); Glucose 124 mg/dL (74-106); Magnesium 2.1 mg/dL (1.8-2.4); Potassium 3.3 mmol/L (3.5-5.1); Sodium 142 mmol/L (136-145); Troponin I < 50 ng/L (<or=60)
[2022-01-17] MEDS: Lidocaine 5% Patch 1 PATCH TP (23:28)
--- NOTE | 2022-01-17 23:32 | DI.VRAD_ITS ---
PROCEDURE INFORMATION: Exam: XR Left Ribs Exam date and time: 01/17/2022 23:17 Age: 31 years old Clinical indication: Left-sided; Chest wall pain; Patient HX: Left chest pain TECHNIQUE: Imaging protocol: Radiologic exam of the Left ribs. Views: 2 views. COMPARISON: CT ABDOMEN PELVIS W 10/18/2020 01:36 FINDINGS: Bones/joints: No acute fracture with attention to the left-sided ribs. Soft tissues: Normal. IMPRESSION: No acute fracture with attention to the left-sided ribs. PROCEDURE INFORMATION: Exam: XR Chest Exam date and time: 01/17/2022 23:17 Age: 31 years old Clinical indication: Left-sided; Chest wall pain; Patient HX: Left chest pain TECHNIQUE: Imaging protocol: Radiologic exam of the chest. Views: 2 views. COMPARISON: CT ABDOMEN PELVIS W 10/18/2020 01:36 FINDINGS: Lungs: No consolidation. Pleural spaces: No pleural effusion. No pneumothorax. Heart/Mediastinum: No cardiomegaly. Bones/joints: No acute fracture. IMPRESSION: No acute cardiopulmonary pathology. Dictated and Authenticated by: Bessie Harper MD. Ordering:SANJEEV Torre MD
[2022-01-17 23:39] LABS: D-Dimer 99 ng/mlFEU (<500)
[2022-01-18 00:15] VITALS: RESP 24; O2SAT 98
[2022-01-18 01:37] VITALS: BP 96/50; PULSE 81; RESP 20; TEMP 36.6; O2SAT 98
[2022-01-18] MEDS: Cyclobenzaprine 10 MG TAB, 3 TABS/BTL PO (01:40)
== END 2022-01-18 01:44 | disposition home or self-care (01) ==
PROVIDERS: Nurse Practitioner Family; Emergency Provider Student in an Organized Health Care Education/Training Program; PCP Physician Assistant Medical
DX: R07.81 Pleurodynia (principal)
CPT/HCPCS: 80053; 81025; 93005; 96374; 99284; 71046; 71100; 83735; 84484; 85025; 85379; 93010; J1885

== ENCOUNTER 2022-02-27 03:39 | Outpatient (CLI) | payer BC, SELFPAY ==
[2022-02-27 14:09] LABS: HCG Quant, Pregnancy 15706 mIU/mL (1-3)
== END 2022-02-27 03:40 | disposition home or self-care (01) ==
LOC: LBO 03:39
PROVIDERS: PCP Physician Assistant Medical; Visit Provider Obstetrics & Gynecology
DX: N91.0 Primary amenorrhea (principal); Z34.91 Encounter for supervision of normal pregnancy, unspecified, first trimester
CPT/HCPCS: 36415; 84702

== ENCOUNTER 2022-04-12 01:52 | Outpatient (CLI) | payer BC, SELFPAY ==
[2022-04-12 11:44] LABS: Abs Immature Grans 0.03 10^3/uL (0.0-0.06); Absolute Basophil Count 0.04 10^3/uL (0.0-0.2); Absolute Eosinophil Count 0.67 10^3/uL (0.0-0.7); Absolute Lymphocyte Count 1.82 10^3/uL (1.2-3.4); Absolute Monocyte Count 0.49 10^3/uL (0.1-0.8); Absolute Neutrophil Count 5.82 10^3/uL (1.2-6.7); Basophils % 0.5; Eosinophils % 7.6; HCT 36.4 % (36.0-46.0); HGB 12.3 g/dL (11.2-15.7); Immature Grans % 0.3; Lymphocytes % 20.5; MCH 31.2 pg (27.0-33.0); MCHC 33.8 % (32.0-36.0); MCV 92 fL (80-95); MPV 9.7 fL (8.0-11.0); Monocytes % 5.5; Neutrophils % 65.6; Platelet Count 258 10^3/uL (130-400); RBC 3.94 10^6/uL (3.93-5.22); RDW 12.4 % (11.7-14.6); RDW-SD 42.5 fL; WBC 8.87 10^3/uL (4.4-10.8)
[2022-04-12 15:44] LABS: Panorama Kit Sent via Fed Ex
[2022-04-13 12:39] LABS: Rubella IgG Ab (UVM) Positive (See Note); Varicella IgG Antibody Negative (See Note)
[2022-04-13 14:21] LABS: HIV-1/2 Ag & Ab Screen Negative (Negative)
[2022-04-16 16:00] LABS: Hepatitis B Surface Ag Negative (Negative)
[2022-04-16 17:59] LABS: Syphilis IgG w/Reflex Nonreactive (Nonreactive)
[2022-04-17 21:58] LABS: Hepatitis C Ab w Rflx HCV PCR Negative (Negative)
[2022-04-23 01:05] LABS: Specimen WB Whole Blood
[2022-05-07 13:13] LABS: Result Summary NEGATIVE; Specimen WB Whole Blood
== END 2022-04-12 01:53 | disposition home or self-care (01) ==
LOC: LBO 01:52
PROVIDERS: Advanced Practice Midwife; PCP Physician Assistant Medical; Visit Provider Advanced Practice Midwife
DX: Z34.91 Encounter for supervision of normal pregnancy, unspecified, first trimester
CPT/HCPCS: 36415; 81220; 81222; 81329; 86787; 86803; 86850; 86900; 86901; 87340; 87389; 85025; 86762; 86780

== ENCOUNTER 2022-04-12 15:32 | Outpatient (REF) | payer BC, SELFPAY ==
--- NOTE | 2022-04-12 10:00 | PAPFT_PTH ---
PATIENT: Maday Zapata LOC: [facility] U#:[id number] AGE/SX: 31/F ROOM: RE04/12/[address]: Bee Lopez : 1990 BED: DIS: 04/12/2022 SPEC #: [id number] RECD: 04/12/22 17:47 STATUS: ARABELLA REQ #: [id number] YURI: 04/12/22 10:[address]: Bee Lopez DEPT: [facility] Cytology RECD BY: Thania Ocampo ENTERED: 04/12/22 17:47 SP TYPE: PAPFT OTHR DR: Alan Peterson V Tissues: 1 - CX/ENDOCX FOR PAP SMEARS Procedures: PAP THIN PREP/[facility] Screening Comments: [id number]
[2022-04-12 16:14] LABS: *AMPHETAMINES SCREEN URINE Negative (Negative); *BARBITURATES SCREEN URINE Negative (Negative); *BENZODIAZEPINES SCREEN URINE Negative (Negative); Cannabinoids THC Negative (Negative); Cocaine Screen,Urine Negative (Negative); METHADONE URINE SCREEN Negative (Negative); OPIATES URINE SCREEN Negative (Negative); Tricyclic Antidepressants Negative (Negative)
[2022-04-14 13:39] LABS: Chlamydia Result Negative (Negative); GC Result Negative (Negative)
[2022-04-18 10:17] LABS: Buprenorphine Negative ng/mL (Cutoff: 5.0); Norbuprenorphine Negative ng/mL (Cutoff: 2.5)
== END 2022-04-12 15:33 | disposition home or self-care (01) ==
LOC: LBN 15:32
PROVIDERS: PCP Physician Assistant Medical; Visit Provider Advanced Practice Midwife
DX: Z34.91 Encounter for supervision of normal pregnancy, unspecified, first trimester (principal); Z12.4 Encounter for screening for malignant neoplasm of cervix; Z11.3 Encounter for screening for infections with a predominantly sexual mode of transmission; Z3A.11 11 weeks gestation of pregnancy
CPT/HCPCS: 80307; 80348; 87491; 87591; 88142; 87086

== ENCOUNTER 2022-05-11 02:11 | Outpatient (CLI) | payer BC, SELFPAY ==
[2022-05-14 16:39] LABS: AFP 35.7 ng/mL; Calculated age at EDD 30 years; Cigarette smoking status non-Smoker; GA used in risk estimate Scan estimate; IVF Pregnancy No; Initial or repeat testing Initial testing; Insulin dependent diabetes No; Maternal Weight 144 lbs; Number of Fetuses 1; Physician Phone Number 802-748-7300; Prev Pregnancy w/NTD No; RECOMMENDED FOLLOW UP None.; Results Summary Normal risk
== END 2022-05-11 02:12 | disposition home or self-care (01) ==
LOC: LBO 02:12
PROVIDERS: PCP Physician Assistant Medical; Visit Provider Advanced Practice Midwife
DX: Z34.90 Encounter for supervision of normal pregnancy, unspecified, unspecified trimester (principal)
CPT/HCPCS: 36415; 82105

== ENCOUNTER 2022-05-30 22:18 | Outpatient (CLI) | payer BC, SELFPAY ==
--- NOTE | 2022-05-30 23:02 | W.OBNST ---
Date of service: 05/30/22 Time of Service: 23:02 NST Evaluation Reason for NST Reason for NST Other: lower right side abdominal cramping after working Test and Monitor Explained Test/Monitor Explained: Test Explained, Monitor Explained and Patient Verbalized Understanding NST Information Date on Monitor: 05/30/22 Time on Monitor: 22:35 Date off Monitor: 05/30/22 Time off Monitor: 22:58 Total Time on Monitor: 23 NST Interventions: None Contraction Frequency: none NST Evaluation FHR Baseline: 150 NST Results: Reactive (reassuring FHR at 18w2d, unable to determine reactivity due to gest age) Note N/A NST Note Note: FHR assessment at 18w2d due to some cramping today after work. 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 Baby is active. Is relieved to hear FHR and does not need further assessment. Will keep next appointment. Discharged home. KETAN NST Reviewed and Verified by: Bee Ramey
== END 2022-05-30 22:19 | disposition home or self-care (01) ==
PROVIDERS: PCP Physician Assistant Medical; Visit Provider Advanced Practice Midwife
DX: O36.8120 Decreased fetal movements, second trimester, not applicable or unspecified (principal); Z3A.18 18 weeks gestation of pregnancy
CPT/HCPCS: 59025

== ENCOUNTER 2022-06-13 09:14 | Outpatient (REF) | payer BC, SELFPAY | END 2022-06-13 09:15 | disposition home or self-care (01) | LOC: LBN 09:14 | PROVIDERS: PCP Physician Assistant Medical; Visit Provider Advanced Practice Midwife | DX: O26.892 Other specified pregnancy related conditions, second trimester (principal); R30.0 Dysuria; Z3A.20 20 weeks gestation of pregnancy | CPT/HCPCS: 87086 ==

== ENCOUNTER 2022-06-25 12:25 | Outpatient (REF) | payer BC, SELFPAY | END 2022-06-25 12:26 | disposition home or self-care (01) | LOC: LBN 12:25 | PROVIDERS: PCP Physician Assistant Medical; Visit Provider Obstetrics & Gynecology | DX: O26.892 Other specified pregnancy related conditions, second trimester (principal); R30.0 Dysuria; Z3A.22 22 weeks gestation of pregnancy | CPT/HCPCS: 87086 ==

== ENCOUNTER 2022-08-10 01:59 | Outpatient (CLI) | payer BC, SELFPAY ==
[2022-08-10 09:36] LABS: HCT 36.3 % (36.0-46.0); HGB 11.9 g/dL (11.2-15.7); MCHC 32.8 % (32.0-36.0); MCV 98 fL (80-95); MPV 9.1 fL (8.0-11.0); Platelet Count 250 10^3/uL (130-400); RBC 3.72 10^6/uL (3.93-5.22); RDW 13.4 % (11.7-14.6); RDW-SD 47.9 fL; WBC 9.48 10^3/uL (4.4-10.8)
[2022-08-10 09:43] LABS: Glucose,1 Hr (Glucola) 201 mg/dL (80-140)
--- NOTE | 2022-08-13 14:30 | W.DIABETESNO ---
Date of service: 08/13/22 Time of Service: 14:31 Diabetes Note Reason for Visit: GDM NOTE: Spoke to Maday on phone today. She reports all fasting blood sugars since 08/10/22 have been under 95mg/dl and 1 hour post prandial levels are < 140 mg/dl. Reviewed diet and exercise recommendations to help with glycemic management. Will follow up in person at next [facility] appt on 08/27/22. Maday to follow up via email or phone if has questions before next visit. Time Spent in Nutritional Counseling and Treatment: 10
--- NOTE | 2022-08-27 13:44 | DIABASSESS_ITS ---
Date of service: 08/27/22 Time of Service: 13:44 Diabetes Note Reason for Visit: GDM NOTE: Met with Maday at [facility] today. Reviewed meals and blood sugar levels. Continues to have GDM diet controlled. WIll be available prn. Time Spent in Nutritional Counseling and Treatment: 20
== END 2022-08-10 02:00 | disposition home or self-care (01) ==
LOC: LBO 01:59
PROVIDERS: PCP Physician Assistant Medical; Visit Provider Advanced Practice Midwife
DX: Z34.93 Encounter for supervision of normal pregnancy, unspecified, third trimester (principal); Z3A.28 28 weeks gestation of pregnancy
CPT/HCPCS: 36415; 82950; 85027

== ENCOUNTER 2022-09-28 00:37 | Outpatient (CLI) | payer BC, SELFPAY ==
--- NOTE | 2022-09-28 06:30 | DI.US_ITS ---
Exam(s) US OB LOUISE WEIGHT EXAM: US OB LOUISE WEIGHT CLINICAL HISTORY: interval growth at 36 wks,diabetes,O24.419. TECHNIQUE: Transabdominal obstetrical ultrasound performed. COMPARISON: US US OB F/U FACIAL/LVOT/RVOT from 08/08/2022 FINDINGS: Number of fetuses: 1 position: CEPHALIC Placental location: FUND/POST. Grade 2. no evidence of previa. BIOMETRIC DATA: BPD: 8.95cm, 36weeks 2days HC: 32.7cm, 37weeks 1day AC: 32.36cm, 36weeks 2days FL: 6.86cm, 35weeks 2days EFW: 2,846.91g, 6lb 5.08oz, 64.3% Composite Age: 36weeks 2days JARED: 10/24/2022 Heart Rate: 140bpm Amniotic fluid index: 15.95cm. Visually, amount of fluid is within normal limits. IMPRESSION: 1. Single live intrauterine gestation as above. 2. Estimated weight is 2847gms. This is the 64th percentile. 3. Amniotic fluid index is 16 cm. Visually within normal limits. DATA REPOSITORY:
== END 2022-09-28 00:57 ==
PROVIDERS: PCP Physician Assistant Medical; Visit Provider Advanced Practice Midwife
DX: O24.410 Gestational diabetes mellitus in pregnancy, diet controlled (principal)
CPT/HCPCS: 76816

== ENCOUNTER 2022-10-01 15:06 | Outpatient (REF) | payer BC, SELFPAY ==
[2022-10-01 17:05] LABS: *AMPHETAMINES SCREEN URINE Negative (Negative); *BARBITURATES SCREEN URINE Negative (Negative); *BENZODIAZEPINES SCREEN URINE Negative (Negative); Cannabinoids THC Negative (Negative); Cocaine Screen,Urine Negative (Negative); METHADONE URINE SCREEN Negative (Negative); OPIATES URINE SCREEN Negative (Negative)
[2022-10-01 17:15] LABS: Tricyclic Antidepressants Negative (Negative)
[2022-10-07 05:32] LABS: Buprenorphine Negative ng/mL (Cutoff: 5.0)
== END 2022-10-01 15:07 | disposition home or self-care (01) ==
LOC: LBN 15:06
PROVIDERS: PCP Physician Assistant Medical; Visit Provider Advanced Practice Midwife
DX: O24.410 Gestational diabetes mellitus in pregnancy, diet controlled (principal); Z36.85 Encounter for antenatal screening for Streptococcus B; Z3A.36 36 weeks gestation of pregnancy
CPT/HCPCS: 80307; 80348; 87081

== ENCOUNTER 2022-10-26 12:22 | Outpatient (CLI) | payer BC, SELFPAY ==
[2022-10-26 13:17] VITALS: BP 118/66; PULSE 86
[2022-10-26 13:25] VITALS: BP 118/66; PULSE 86; TEMP 36.5
[2022-10-26 13:28] LABS: ROM Plus Negative
--- NOTE | 2022-10-26 14:22 | W.OBNST ---
Date of service: 10/26/22 Time of Service: 14:22 NST Evaluation Reason for NST Reasons for Nonstress Test: OTHER, SEE COMMENT Reason for NST Other: r/o srom Gestational Age Gestational Age in Weeks and Days: 39 Weeks and 4Days Test and Monitor Explained Test/Monitor Explained: Test Explained, Monitor Explained and Patient Verbalized Understanding Vital Signs Blood Pressure: 118/66 Pulse: 86 Temperature: 97.7 F NST Information Date on Monitor: 10/26/22 Time on Monitor: 12:40 NST Interventions: None NST Evaluation Patient States Movement: Present FHR Baseline: 130 Variability: Moderate 6-25 bpm Accelerations: 15x15 Decelerations: None NST Results: Reactive Note Ultrasound Done: N/A. NST Note Note: Maday reports small amount of fluid leaking today. Occasional mild contractions. ROM plus neg. SVE - cervix 1/25%/-1 station. Signs of labor reviewed. RTO for visit 10/29 NST Reviewed and Verified by: Bee Lopez
[2022-10-26 14:23] VITALS: BP 118/66; PULSE 86; TEMP 36.5
== END 2022-10-26 14:00 | disposition home or self-care (01) ==
LOC: BCD 12:22 → OBS 12:41
PROVIDERS: PCP Physician Assistant Medical; Visit Provider Advanced Practice Midwife
DX: O47.1 False labor at or after 37 completed weeks of gestation (principal); Z3A.39 39 weeks gestation of pregnancy
CPT/HCPCS: 84112; 59025

== ENCOUNTER 2022-10-29 11:46 | Outpatient (CLI) | payer BC, SELFPAY ==
[2022-10-29] VITALS (12 sets, daily range): BP systolic 109; BP diastolic 74; PULSE 76–87; TEMP 36.8; O2SAT 96–97
--- NOTE | 2022-10-29 12:46 | W.OBNST ---
Date of service: 10/29/22 Time of Service: 12:46 NST Evaluation Reason for NST Reasons for Nonstress Test: OTHER, SEE COMMENT Reason for NST Other: rule out labor Gestational Age Gestational Age in Weeks and Days: 40 Weeks and 0Days Test and Monitor Explained Test/Monitor Explained: Test Explained, Monitor Explained and Patient Verbalized Understanding Vital Signs Blood Pressure: 109/74 Pulse: 77 Temperature: 98.2 F Urine Results Urine Protein: Negative Urine Ketones: Negative Urine Glucose: Negative Urine Blood: Negative NST Information Date on Monitor: 10/29/22 Time on Monitor: 12:06 Date off Monitor: 10/29/22 Time off Monitor: 12:32 Total Time on Monitor: 26 NST Interventions: PO Hydration Contraction Frequency: 0 NST Evaluation Patient States Movement: Present FHR Baseline: 125 Variability: Moderate 6-25 bpm Accelerations: 15x15 Decelerations: None NST Results: Reactive Note Ultrasound Done: N/A. NST Note Note: Maday is here for rule out labor. She began experiencing discomfort this morning. Baby is active and NST is reactive. occasional mild contractions. SVE performed. 1/50%/-1, cervix is softening. mucus plug noted. RTO with active labor. NST Reviewed and Verified by: Bee Lopez
== END 2022-10-29 12:40 | disposition home or self-care (01) ==
LOC: BCD 11:47 → OBS 11:57
PROVIDERS: PCP Physician Assistant Medical; Visit Provider Advanced Practice Midwife
DX: O47.1 False labor at or after 37 completed weeks of gestation (principal); Z3A.40 40 weeks gestation of pregnancy
CPT/HCPCS: 59025

== ENCOUNTER 2022-10-29 17:40 | Inpatient (IN) | payer BC, SELFPAY ==
[2022-10-29] VITALS (10 sets, daily range): BP systolic 119–123; BP diastolic 69–79; PULSE 77–98; RESP 18; TEMP 36.6–36.9; O2SAT 98
[2022-10-29 17:46] LABS: ROM Plus Positive
[2022-10-29 18:07] LABS: HCT 39.2 % (36.0-46.0); HGB 13.5 g/dL (11.2-15.7); MCH 32.7 pg (27.0-33.0); MCHC 34.4 % (32.0-36.0); MCV 95 fL (80-95); MPV 10.3 fL (8.0-11.0); Platelet Count 190 10^3/uL (130-400); RBC 4.13 10^6/uL (3.93-5.22); RDW 13.7 % (11.7-14.6); RDW-SD 47.6 fL; WBC 8.85 10^3/uL (4.4-10.8)
--- NOTE | 2022-10-29 18:15 | HPE_ITS ---
Date of service: 10/29/22 Time of Service: 18:15 Assessment and Plan Assessment and plan (1) Spontaneous onset of labor: Status: Acute Assessment and plan: Admit to Center. Comfort measures. Anticipate . (2) Gestational diabetes mellitus (GDM) affecting : Status: Acute Assessment and plan: CMP on admission and will check blood sugar one hour after meals. OB-HPI Labor/Delivery History of Present Illness Reason for Visit: labor Chief Complaint: Uterine Contractions; Suspected Rupture of Membranes , Associated Signs and Symptoms of Suspected ROM: contractions. JARED Calculator Estimated Delivery Date Method Current WG Current Estimate 10/29/22 Ultrasound #1 40w 0d Other Estimates 10/24/22 LMP (Certain) 40w 5d Comments: Maday had a nST and office visit earlier today and was beginning to experience contractions. She called and reported leaking fluid. ROM plus was positive and she was leaking large amount of fluid after she used the bathroom upon arrival. History of Present Expected Delivery Route/Plan - CNM FOB/ - Camron Zapata BG Varicella non immune, offer PP GDM, diet controlled, offer IOL @ 40-41 wks GBS negative Specific Issues/Plan 1. Partner has HSV - on suppression, valtrex escribed at 36 weeks 2. FOB & his father with bicuspid aorta - to [facility] for level 2 & echo done 06/08 = nml. 3. Genetic testing: cfDNA WNL, CF & SMA negative, AFP nml risk for NTD 4. Low lying placenta, limited views or abdomen and cord insertion, 4a. US @ 22 wks-abdominal wall is WNL. 4b. Scan @ 28 wks: placenta is fundal/posterior, nml placental location 4x. US at 36 weeks; Cephalic 64% LOUISE 15.95 5. Glucola at 28 iup=729, GDM, to start QID testing and diet/sugar dairy, ref to DM educator 5a. All readings WNL - testing 3 x weekly. 5b. All readigs WNL, testing 2 x per week. PFSH All Active Problems (Updated 10/29/22 @ 18:19 by Bee Lopez CNM) Spontaneous onset of labor (Acute) Gestational diabetes mellitus (GDM) affecting (Acute) Maternal varicella, non-immune (Acute) (Acute) Nausea and vomiting during (Acute) Medical History (Updated 10/29/22 @ 18:19 by Bee Lopez CNM) Benign breast cyst in female Delayed menses Dysuria during Dysuria during in second trimester Early stage of Family history of congenital heart defect and his father History of abnormal cervical Pap smear Low lying placenta nos or without hemorrhage, second trimester Surgical History S/P dilation and curettage Family History (Updated 04/12/22 @ 10:31 by Bee Lopez CNM) Father Heart disease age 65 Sister Thyroid disease Social History Smoking/Tobacco Use Status: Never Smoking risk assessment performed?: Yes Alcohol Intake: never Drug use: Never Substance use type: does not use Housing: house Do you feel safe at home: Yes Do you feel safe in your relationship?: Yes History History 2 Para 0 Hx # Term Pregnancies 0 Multiple births 0 Hx # Pregnancies 0 Ectopic pregnancies 0 AB induced 0 Hx Number of Living Children 0 AB spontaneous 1 Past Pregnancies Del. Date GA/Weeks # Preg Succ Route Wgt Sex Labor Lgth Anesth esia Location Prov Complic 10/20/20 No Delivery Date: 10/20/20 Last Updated by: Bee Lopez CNM 9 weeks. demise identified by Meds Allergies and Home Medications Allergies Allergy/AdvReac Type Severity Reaction Status Date / Time No Known Allergies Allergy Verified 10/29/22 11:22 Home Medications Medication Instructions Recorded Confirmed Type prenat.vits,kymberly,gpt-iucc-hnsqj 1 tab PO DAILY 02/22/22 10/29/22 History acetaminophen 325 mg capsule 325 mg PO ONCE PRN 05/11/22 10/29/22 History (Tylenol) alcohol swabs (Alcohol Wipes) 1 pad topical QID GDM #100 ea 08/10/22 10/29/22 Rx blood sugar diagnostic (FreeStyle #100 ea 08/10/22 10/29/22 Rx Lite Strips) blood-glucose meter (FreeStyle #1 ea 08/10/22 10/29/22 Rx Lite Meter kit) lancets 28 gauge (FreeStyle #100 ea 06/09/23 08/28/23 Rx Lancets) valacyclovir 1 gram tablet 1,000 mg PO DAILY #30 tabs 09/25/22 10/29/22 Rx (Valtrex) pantoprazole 40 mg tablet,delayed 40 mg PO DAILY #30 tabs 09/26/22 10/29/22 Rx release (Protonix) docusate sodium 100 mg capsule 100 mg PO BID 10/09/22 10/29/22 History (Colace) Exam Physical Exam Vital signs: Temp Pulse Resp BP Pulse Ox 98.1 F 83 18 123/78 98 10/29/22 17:53 10/29/22 18:08 10/29/22 17:53 10/29/22 18:08 10/29/22 18:08 Detailed Labor and Delivery Exam Collins Score: Cervical Points Exam 0 1 2 3 Dilation Closed 1-2cm 3-4 cm 5-6cm Effacement 0-30% 40-50% 60-70% 80% Consistency Firm Medium Soft Station -3 -2 -1,0 +1,+2 Position Posterior Mid Anterior Rupture Method: Spontaneous Amniotic Fluid: Clear ROM Plus: Positive Monitor Mode: External Contraction Frequency(min): every 5 minutes Contraction Duration(sec): 60 Contraction Intensity: Moderate Comments: cervical exam deferred. 1/50%/-1 earlier today. Fetus A Heart Rate Baseline: 130 Monitor Accelerations: 15 X 15 Monitor Decelerations: None Variability: Moderate (6-25 BPM) Presentation: Vertex Categories: Category I Date of Membrane Rupture: 10/29/22 Time of Membrane Rupture: 17:00 Results Results Group Beta Strep: Negative Blood Type: A+ Rubella Status: Immune Varicella Immunity: Nonimmune Risk Assessment Risk for Shoulder Dystocia Historical/Initial OB: NEGATIVE FOR: Pelvic Abnormality, Pre- BMI>30, Previous Shoulder Dystocia or Previous Macrosomia Increased Risk?: No Risk for Pre-Eclampsia Daily Dose ASA Indicated: No Yes, if one or more: NEGATIVE FOR: Hx Pre-E/Gest HTN, Chronic HTN, Multiple Gestation, Pre-gestational DM, Renal Disease, Systemic Lupus or APA Syndrome Yes, if 2 or more: POSITIVE FOR: Nulliparity; NEGATIVE FOR: Age>= 35 yrs, >10yr btwn pregnancies, BMI>30, ethinicty, Mother/Sister w/ Pre-E or Previous IUGR Risk for Post- Hemorrhage Initial: NEGATIVE FOR: Multiple Gestation, Previous PPH, Known Clotting Deficiency, Grand Multiparity or Anticoagulation At Risk?: No Risks Reviewed Risks Reviewed Upon Admission: Yes
[2022-10-29 18:20] LABS: ALT 17 U/L (14-59); AST 17 U/L (15-37); Albumin 2.9 g/dL (3.4-5.0); Alkaline Phosphatase 123 U/L (46-116); Anion Gap 11.6 mmol/L (3-11); BUN 9 mg/dL (7-18); Bilirubin, Total 0.2 mg/dL (0.2-1.0); CO2 22.4 mmol/L (21.0-32.0); CREATININE 0.5 mg/dL (0.55-1.02); Calcium 8.8 mg/dL (8.5-10.1); Chloride 102 mmol/L (98-107); Estimated GFR 129.32 (mL/min/1.73m2); Glucose 90 mg/dL (74-106); Potassium 3.5 mmol/L (3.5-5.1); Sodium 136 mmol/L (136-145); Total Protein 7.1 g/dL (6.4-8.2)
--- NOTE | 2022-10-29 21:22 | W.PM.OBNL1 ---
Date of service: 10/29/22 Time of Service: 21:22 Pelvic Exam Dilation: 2 Effacement (%): 50 station: -1 Cervix Position: posterior Consistency: medium Vaginal Exam Presentation: Vertex Contractions Monitor Mode: External Contraction Frequency(min): every 4-5 minutes Contraction Duration(sec): 60 Intensity: Moderate Fetus A Monitor: External (US) Heart Rate Baseline: 135 Presentation: Vertex Variability: Moderate (6-25 BPM) Categories: Category I FHR Rhythm: Regular Accelerations: 15 X 15 Decelerations: None Amniotic Membrane Status: Ruptured Assessment and Plan Assessment and plan (1) Spontaneous onset of labor: Status: Acute Assessment and plan: Anticipate . Pitocin augmentation offered if Maday desires or expectant management. Flor and Camron will consider. (2) Gestational diabetes mellitus (GDM) affecting : Status: Acute Assessment and plan: continue to check blood sugar 1 hour after meals. Objective Abnormal lab results 10/29/22 Range/Units 17:56 Anion Gap 11.6 H (3-11) mmol/L Creatinine 0.5 L (0.55-1.02) mg/dL Alkaline Phosphatase 123 H (46-116) U/L Albumin 2.9 L (3.4-5.0) g/dL Temp Pulse Resp BP Pulse Ox 98.4 F 90 18 122/69 98 10/29/22 20:30 10/29/22 19:11 10/29/22 19:11 10/29/22 19:11 10/29/22 19:11 Laboratory Results WBC 8.85 10^3/uL (4.4-10.8) 10/29/22 17:56 RBC 4.13 10^6/uL (3.93-5.22) 10/29/22 17:56 Hgb 13.5 g/dL (11.2-15.7) 10/29/22 17:56 Hct 39.2 % (36.0-46.0) 10/29/22 17:56 MCV 95 fL (80-95) 10/29/22 17:56 MCH 32.7 pg (27.0-33.0) 10/29/22 17:56 MCHC 34.4 % (32.0-36.0) 10/29/22 17:56 RDW 13.7 % (11.7-14.6) 10/29/22 17:56 Plt Count 190 10^3/uL (130-400) 10/29/22 17:56 MPV 10.3 fL (8.0-11.0) 10/29/22 17:56 Sodium 136 mmol/L (136-145) 10/29/22 17:56 Potassium 3.5 mmol/L (3.5-5.1) 10/29/22 17:56 Chloride 102 mmol/L (98-107) 10/29/22 17:56 Carbon Dioxide 22.4 mmol/L (21.0-32.0) 10/29/22 17:56 Anion Gap 11.6 mmol/L (3-11) H 10/29/22 17:56 BUN 9 mg/dL (7-18) 10/29/22 17:56 Creatinine 0.5 mg/dL (0.55-1.02) L 10/29/22 17:56 Est GFR (CKD-EPI 2020) 129.32 (mL/min/1.73m2) 10/29/22 17:56 Glucose 90 mg/dL (74-106) 10/29/22 17:56 Calcium 8.8 mg/dL (8.5-10.1) 10/29/22 17:56 Total Bilirubin 0.2 mg/dL (0.2-1.0) 10/29/22 17:56 AST 17 U/L (15-37) 10/29/22 17:56 ALT 17 U/L (14-59) 10/29/22 17:56 Alkaline Phosphatase 123 U/L (46-116) H 10/29/22 17:56 Total Protein 7.1 g/dL (6.4-8.2) 10/29/22 17:56 Albumin 2.9 g/dL (3.4-5.0) L 10/29/22 17:56 Membranes Rupture Positive 10/29/22 17:10 Patient ABO/Rh A Positive 10/29/22 17:56 Antibody Screen NEGATIVE 10/29/22 17:56 Subjective Interval history since last seen: Maday has been sitting on the ball and ambulating for comfort. She has been tracking her contractions with an randy and they have been every 4 minutes, She is leaking clear blood tinged fluid. She is coping well with labor. Results Hemoglobin/Hematocrit: Hgb 13.5 g/dL (11.2-15.7) 10/29/22 17:56 Hct 39.2 % (36.0-46.0) 10/29/22 17:56 Abnormal Lab Findings: Abnormal Labs 10/29/22 17:56 Anion Gap 11.6 H Creatinine 0.5 L Alkaline Phosphatase 123 H Albumin 2.9 L
[2022-10-30] VITALS (95 sets, daily range): BP systolic 78–142; BP diastolic 47–79; PULSE 0–108; RESP 14–22; TEMP 36.3–39.3; O2SAT 88–100; BMI 28.6
--- NOTE | 2022-10-30 03:27 | W.PM.OBNL1 ---
Date of service: 10/30/22 Time of Service: 03:27 Pelvic Exam Dilation: 3 Effacement (%): 85 station: -1 Cervix Position: posterior Consistency: soft Contractions Monitor Mode: External Contraction Frequency(min): every 3-4 Contraction Duration(sec): 60 Intensity: Moderate/Strong Fetus A Monitor: Doppler Heart Rate Baseline: 135 Decelerations: None Assessment and Plan Assessment and plan (1) Spontaneous onset of labor: Status: Acute Assessment and plan: pain relief methods discussed. (2) Gestational diabetes mellitus (GDM) affecting : Status: Acute Assessment and plan: random blood sugar 90 on admission and 93 after dinner. Objective Abnormal lab results 10/29/22 Range/Units 17:56 Anion Gap 11.6 H (3-11) mmol/L Creatinine 0.5 L (0.55-1.02) mg/dL Alkaline Phosphatase 123 H (46-116) U/L Albumin 2.9 L (3.4-5.0) g/dL Temp Pulse Resp BP Pulse Ox 97.8 F 90 18 122/69 98 10/30/22 02:47 10/29/22 19:11 10/29/22 19:11 10/29/22 19:11 10/29/22 19:11 Laboratory Results WBC 8.85 10^3/uL (4.4-10.8) 10/29/22 17:56 RBC 4.13 10^6/uL (3.93-5.22) 10/29/22 17:56 Hgb 13.5 g/dL (11.2-15.7) 10/29/22 17:56 Hct 39.2 % (36.0-46.0) 10/29/22 17:56 MCV 95 fL (80-95) 10/29/22 17:56 MCH 32.7 pg (27.0-33.0) 10/29/22 17:56 MCHC 34.4 % (32.0-36.0) 10/29/22 17:56 RDW 13.7 % (11.7-14.6) 10/29/22 17:56 Plt Count 190 10^3/uL (130-400) 10/29/22 17:56 MPV 10.3 fL (8.0-11.0) 10/29/22 17:56 Sodium 136 mmol/L (136-145) 10/29/22 17:56 Potassium 3.5 mmol/L (3.5-5.1) 10/29/22 17:56 Chloride 102 mmol/L (98-107) 10/29/22 17:56 Carbon Dioxide 22.4 mmol/L (21.0-32.0) 10/29/22 17:56 Anion Gap 11.6 mmol/L (3-11) H 10/29/22 17:56 BUN 9 mg/dL (7-18) 10/29/22 17:56 Creatinine 0.5 mg/dL (0.55-1.02) L 10/29/22 17:56 Est GFR (CKD-EPI 2020) 129.32 (mL/min/1.73m2) 10/29/22 17:56 Glucose 90 mg/dL (74-106) 10/29/22 17:56 Calcium 8.8 mg/dL (8.5-10.1) 10/29/22 17:56 Total Bilirubin 0.2 mg/dL (0.2-1.0) 10/29/22 17:56 AST 17 U/L (15-37) 10/29/22 17:56 ALT 17 U/L (14-59) 10/29/22 17:56 Alkaline Phosphatase 123 U/L (46-116) H 10/29/22 17:56 Total Protein 7.1 g/dL (6.4-8.2) 10/29/22 17:56 Albumin 2.9 g/dL (3.4-5.0) L 10/29/22 17:56 Membranes Rupture Positive 10/29/22 17:10 Patient ABO/Rh A Positive 10/29/22 17:56 Antibody Screen NEGATIVE 10/29/22 17:56 Subjective Interval history since last seen: Saloni has been trying various positions for comfort including showering and hands and knees on the ball. She is coping well with contractions. Results Hemoglobin/Hematocrit: Hgb 13.5 g/dL (11.2-15.7) 10/29/22 17:56 Hct 39.2 % (36.0-46.0) 10/29/22 17:56 Abnormal Lab Findings: Abnormal Labs 10/29/22 17:56 Anion Gap 11.6 H Creatinine 0.5 L Alkaline Phosphatase 123 H Albumin 2.9 L
--- NOTE | 2022-10-30 03:32 | W.OBNST ---
Date of service: 10/29/22 Time of Service: 18:00 NST Evaluation Reason for NST Reasons for Nonstress Test: OTHER, SEE COMMENT Reason for NST Other: rule out labor Gestational Age Gestational Age in Weeks and Days: 40 Weeks and 0Days Test and Monitor Explained Test/Monitor Explained: Test Explained, Monitor Explained and Patient Verbalized Understanding Vital Signs Blood Pressure: 119/79 Pulse: 88 Temperature: 98.2 F NST Information Date on Monitor: 10/29/22 Time on Monitor: 17:19 Date off Monitor: 10/29/22 Time off Monitor: 17:45 Total Time on Monitor: 26 NST Interventions: PO Hydration Contraction Frequency: 3-5 NST Evaluation Patient States Movement: Present FHR Baseline: 125 Variability: Moderate 6-25 bpm Accelerations: 15x15 Decelerations: None NST Results: Reactive Note Ultrasound Done: N/A. NST Note Note: Maday presented with rule out ruptured membranes. Membranes were grossly ruptured on admission. Admitted in early labor NST Reviewed and Verified by: Bee Lopez
[2022-10-30] MEDS: Normal Saline Flush 10 ML SYR IVP (04:24)
[2022-10-30] MEDS: Ondansetron 4 MG/2 ML VIAL (04:29)
[2022-10-30] MEDS: Lactated Ringers 500 ML IV (04:31)
--- NOTE | 2022-10-30 04:37 | W.ANESPRE ---
General Info Date of Service Date Performed: 10/30/22 Height: 5 ft 7 in Weight: 83.007 kg Body Mass Index (BMI): 28.6 Meds Allergies and Home Medications Allergies Allergy/AdvReac Type Severity Reaction Status Date / Time No Known Allergies Allergy Verified 10/29/22 11:22 Home Medication Medication Instructions Recorded prenat.vits,kymberly,pjj-anze-mkeww 1 tab PO DAILY 02/22/22 acetaminophen 325 mg capsule 325 mg PO ONCE PRN 05/11/22 (Tylenol) alcohol swabs (Alcohol Wipes) 1 pad topical QID GDM #100 ea 08/10/22 blood sugar diagnostic (FreeStyle #100 ea 08/10/22 Lite Strips) blood-glucose meter (FreeStyle #1 ea 08/10/22 Lite Meter kit) lancets 28 gauge (FreeStyle #100 ea 08/10/22 Lancets) valacyclovir 1 gram tablet 1,000 mg PO DAILY #30 tabs 09/25/22 (Valtrex) pantoprazole 40 mg tablet,delayed 40 mg PO DAILY #30 tabs 09/26/22 release (Protonix) docusate sodium 100 mg capsule 100 mg PO BID 10/09/22 (Colace) Current Visit Medications: Current Medications Generic Name Dose Route Start Last Admin Trade Name Freq PRN Reason Stop Dose Admin Fentanyl/Ropivacaine 200 ml 10/30/22 04:15 Fentanyl/Ropivacaine 2 Mcg/Ml And 0.1% 200 Ml Cadd Cassette EP DIRECTED LIZETT Sodium Chloride 500 mls @ 0 mls/hr 10/29/22 17:40 Saline 500ml Bag IV PRN PRN As Directed Ringer's Solution 500 mls @ 500 mls/hr 10/30/22 04:26 10/30/22 04:31 IV 10/30/22 05:25 500 mls/hr BOLUS ONE Administration IV Miscellaneous Supplies 1 each 10/29/22 17:45 Iv Access IV DIRECTED LIZETT Sodium Chloride 0 ml 10/29/22 17:40 10/30/22 04:24 Normal Saline Flush 10 Ml Syr IVP 10 ml PRN PRN Administration PFSH Active Problems Active Problems: Problem Status Onset Code Spontaneous onset of labor Gestational diabetes mellitus (GDM) affecting O24.419 Maternal varicella, non-immune O09.899, Z28.39 Z34.90 Nausea and vomiting during O21.9 Medical History Medical History (Updated 10/29/22 @ 18:19 by Bee Lopez CNM) Benign breast cyst in female Delayed menses Dysuria during Dysuria during in second trimester Early stage of Family history of congenital heart defect and his father History of abnormal cervical Pap smear Low lying placenta nos or without hemorrhage, second trimester Surgical History Surgical History S/P dilation and curettage Tobacco Smoking/Tobacco Use Status: Never Alcohol Alcohol Intake: never Substance Use Substance use: Never Substance use type: does not use Prental History History 2 Para 0 Hx # Term Pregnancies 0 Multiple births 0 Hx # Pregnancies 0 Ectopic pregnancies 0 AB induced 0 Hx Number of Living Children 0 AB spontaneous 1 Past Pregnancies Del. Date GA/Weeks # Preg Succ Route Wgt Sex Labor Lgth Anesthesia Location Prov Complic 10/20/20 No Delivery Date: 10/20/20 Last Updated by: Bee Lopez CNM 9 weeks. demise identified by US Vital Signs and Lab Results Vital Signs Most Recent Vital Signs in EMR: Most Recent Vital Signs Temp Pulse Resp BP Pulse Ox 36.6 C 90 18 122/69 98 10/30/22 03:58 10/29/22 19:11 10/29/22 19:11 10/29/22 19:11 10/29/22 19:11 Point of Care Results Point of Care Results: Finger Stick Blood Glucose 93 10/29/22 20:29 Lab Results 10/29/22 17:56 10/29/22 17:56 Blood Type / Crossmatch: Patient ABO/Rh A Positive 10/29/22 Antibody Screen NEGATIVE 10/29/22 Complete Blood Count: White Blood Count 8.85 10^3/uL (4.4-10.8) 10/29/22 17:56 Red Blood Count 4.13 10^6/uL (3.93-5.22) 10/29/22 17:56 Hemoglobin 13.5 g/dL (11.2-15.7) 10/29/22 17:56 Hematocrit 39.2 % (36.0-46.0) 10/29/22 17:56 Platelet Count 190 10^3/uL (130-400) 10/29/22 17:56 Complete Metabolic Panel: Sodium 136 mmol/L (136-145) 10/29/22 17:56 Potassium 3.5 mmol/L (3.5-5.1) 10/29/22 17:56 Chloride 102 mmol/L (98-107) 10/29/22 17:56 Carbon Dioxide 22.4 mmol/L (21.0-32.0) 10/29/22 17:56 BUN 9 mg/dL (7-18) 10/29/22 17:56 Creatinine 0.5 mg/dL (0.55-1.02) L 10/29/22 17:56 Est GFR (CKD-EPI 2020) 129.32 (mL/min/1.73m2) 10/29/22 17:56 Calcium 8.8 mg/dL (8.5-10.1) 10/29/22 17:56 Albumin 2.9 g/dL (3.4-5.0) L 10/29/22 17:56 Glucose 90 mg/dL (74-106) 10/29/22 17:56 Liver Function Panel: Alanine Aminotransferase (ALT/SGPT) 17 U/L (14-59) 10/29/22 17:56 Aspartate Amino Transf (AST/SGOT) 17 U/L (15-37) 10/29/22 17:56 Coagulation Panel: No Data to Display Cardiac Panel: No Data to Display Arterial Blood Gas: No Data to Display Venous Blood Gas: No Data to Display Pancreas Panel: No Data to Display Thyroid Panel: No Data to Display Infectious Disease: No Data to Display Blood Cultures: No Data to Display Toxicology Panel: Urine Amphetamines Screen Negative (Negative) 10/01/22 14:45 Urine Benzodiazepines Screen Negative (Negative) 10/01/22 14:45 Urine Barbiturates Screen Negative (Negative) 10/01/22 14:45 Urine Cocaine Screen Negative (Negative) 10/01/22 14:45 Urine Methadone Screen Negative (Negative) 10/01/22 14:45 Urine Opiates Screen Negative (Negative) 10/01/22 14:45 Ur Tricyclic Antidepressants Screen Negative (Negative) 10/01/22 14:45 Ur Tetrahydrocannabinol (THC) Scrn Negative (Negative) 10/01/22 14:45 Panel: No Data to Display Imaging and Studies Imaging and Studies Study information below may be from another EMR and interpreted by another provider. Please see original notes in EMR for more complete details. EKG Summary: 01/17/2022: Conclusion Sinus rhythm...normal P axis, V-rate 60- 99 Physician: no stemi I have reviewed and I agree with the emergency room physician's ECG interpretation. Anesthesia Assessment and Plan Anesthesia History Personal History: No History of Anesthesia Complications Family History: No Family History of Anesthesia Complications Exercise Tolerance Exercise Tolerance: Metabolic Equivalents>4 Cardiac & Pulmonary Exam Cardiac Exam: Normal S1/S2 Heart Sounds Pulmonary Exam: Clear Bilateral Breath Sounds Implantable Cardiac Device Does patient have a Pacemaker or an ICD?: No Airway Exam Known Difficult Airway: No Mallampati Class: 1 Mouth Opening: Normal (> 3cm) Thyromental Distance: Greater than 3 cm Neck Range of Motion: Full ROM Neck Circumference: Normal Teeth Condition: Normal Dentition ASA Classification ASA Score: ASA 2 Emergency Case?: No NPO Status NPO Status: Full Stomach Status Status: Confirmed Anesthesia Plan Resuscitation Status: Full Code Anesthesia Technique: Epidural Anesthesia Airway Planned: Natural Airway Pain Management: Epidural Monitors Used: Standard Monitors
[2022-10-30] MEDS: FentaNYL/ROPIvacaine 2 mcg/ml and 0.1% 200 ML CADD Cassette EP (04:56)
--- NOTE | 2022-10-30 05:15 | W.ANESNEU ---
Epidural/Spinal Catheter Date Performed: 10/30/22 Procedure Start: 04:55 Procedure Stop: 05:15 Requesting Provider: eBe Lopez Procedure Location: Obstetrics Reason Performed: Labor Epidural Standard Monitors Applied: Blood Pressure, SpO2 and See EMR for corresponding vital signs Patient Position: Sitting Sedation Given (Indicate Dose Given): No Sedation given Patient Mental Status: Awake Sterility: Hand Hygiene, Surgical Cap, Surgical Mask, Sterile Gloves, Sterile Drape/Sheet and Chlorhexidine Procedure Location: L3-L4 Interspace Epidural Needle: Tuohy 18 Gauge Needle Length: 4 Inch Needle Approach: Midline Epidural Procedure: Skin Prepped, Sterile Drape Placed, 1% Lidocaine to skin and subcutaneous tissue with 25G needle, Tuohy Needle placed, ELLEN to Saline Used, Epidural Catheter Placed, Negative Heme, Negative CSF Flow and Tuohy Needle Removed Catheter Placed?: Catheter Placed Test Dose (Indicate Dose Given): 3ml 1.5% Lidocaine with 1:200K Epinephrine Given Loss of Resistance Depth (cm): 7 Catheter depth at skin (cm): 15 Dressing: [place] Dressing Placed and Dressing reinforced with Tape Epidural Provider Bolus (Indicate Dose Given): Total bolus dose given in 3-5 ml divided doses and Total Ropivacaine 0.1% with Fentanyl 2mcg/ml Given from pump. (ml) Dose:: 5mL Additives (Indicate Dose Given ): None Infusion Medication: Medication Infusion Began Medication Infusion: Ropivacaine 0.1% with Fentanyl 2mcg/ml Maintenance Infusion Rate (ml/hour): 10 PCEA Bolus Dose (ml): 5 Block Level: T10 Paresthesia: None Ultrasound: Not Used Number of Attempts (See previous attempts in note section): 1 Procedure Tolerated: No Complications Procedure Outcome: Successful Performed By: Gabriela Rivas
[2022-10-30] MEDS: Oxytocin/Normal Saline 30 UNIT/500 ML BAG 2 UNITS IV (06:15)
[2022-10-30] MEDS: Calcium Carbonate *TUMS* 500 MG CHEW 1000 MG PO (07:28)
--- NOTE | 2022-10-30 12:36 | W.PM.OBNL1 ---
Date of service: 10/30/22 Time of Service: 10:00 Pelvic Exam Dilation: 8 Effacement (%): 90 station: 0 Cervix Position: mid Consistency: soft Contractions Monitor Mode: External Contraction Frequency(min): every 3 Contraction Duration(sec): 60 Intensity: Strong Fetus A Monitor: External (US) Heart Rate Baseline: 145 Variability: Moderate (6-25 BPM) Categories: Category I Accelerations: 15 X 15 Decelerations: None Assessment and Plan Assessment and plan (1) Spontaneous onset of labor: Status: Acute Assessment and plan: Rest was encouraged and laboring down. Will re-examin in 2 hours or when appropriate. Anticipate . Objective Abnormal lab results 10/29/22 Range/Units 17:56 Anion Gap 11.6 H (3-11) mmol/L Creatinine 0.5 L (0.55-1.02) mg/dL Alkaline Phosphatase 123 H (46-116) U/L Albumin 2.9 L (3.4-5.0) g/dL Temp Pulse Resp BP Pulse Ox 100.2 F H 103 H 18 100/53 L 96 10/30/22 12:35 10/30/22 12:25 10/30/22 09:30 10/30/22 12:25 10/30/22 08:28 Laboratory Results WBC 8.85 10^3/uL (4.4-10.8) 10/29/22 17:56 RBC 4.13 10^6/uL (3.93-5.22) 10/29/22 17:56 Hgb 13.5 g/dL (11.2-15.7) 10/29/22 17:56 Hct 39.2 % (36.0-46.0) 10/29/22 17:56 MCV 95 fL (80-95) 10/29/22 17:56 MCH 32.7 pg (27.0-33.0) 10/29/22 17:56 MCHC 34.4 % (32.0-36.0) 10/29/22 17:56 RDW 13.7 % (11.7-14.6) 10/29/22 17:56 Plt Count 190 10^3/uL (130-400) 10/29/22 17:56 MPV 10.3 fL (8.0-11.0) 10/29/22 17:56 Sodium 136 mmol/L (136-145) 10/29/22 17:56 Potassium 3.5 mmol/L (3.5-5.1) 10/29/22 17:56 Chloride 102 mmol/L (98-107) 10/29/22 17:56 Carbon Dioxide 22.4 mmol/L (21.0-32.0) 10/29/22 17:56 Anion Gap 11.6 mmol/L (3-11) H 10/29/22 17:56 BUN 9 mg/dL (7-18) 10/29/22 17:56 Creatinine 0.5 mg/dL (0.55-1.02) L 10/29/22 17:56 Est GFR (CKD-EPI 2020) 129.32 (mL/min/1.73m2) 10/29/22 17:56 Glucose 90 mg/dL (74-106) 10/29/22 17:56 Calcium 8.8 mg/dL (8.5-10.1) 10/29/22 17:56 Total Bilirubin 0.2 mg/dL (0.2-1.0) 10/29/22 17:56 AST 17 U/L (15-37) 10/29/22 17:56 ALT 17 U/L (14-59) 10/29/22 17:56 Alkaline Phosphatase 123 U/L (46-116) H 10/29/22 17:56 Total Protein 7.1 g/dL (6.4-8.2) 10/29/22 17:56 Albumin 2.9 g/dL (3.4-5.0) L 10/29/22 17:56 Membranes Rupture Positive 10/29/22 17:10 Patient ABO/Rh A Positive 10/29/22 17:56 Antibody Screen NEGATIVE 10/29/22 17:56 Subjective Interval history since last seen: Maday received an epidural administered by Gabriela Rivas CRNA with excellent effect. She rested and began to feel an urge to push and was examined Results Hemoglobin/Hematocrit: Hgb 13.5 g/dL (11.2-15.7) 10/29/22 17:56 Hct 39.2 % (36.0-46.0) 10/29/22 17:56 Abnormal Lab Findings: Abnormal Labs 10/29/22 17:56 Anion Gap 11.6 H Creatinine 0.5 L Alkaline Phosphatase 123 H Albumin 2.9 L
--- NOTE | 2022-10-30 12:39 | W.OBDELIVERY ---
Date of service: 10/30/22 Time of Service: 12:39 OB Labor/ Delivery Information Baby A Delivery Delivery Method: Spontaneaous Presentation: Vertex Cephalic Position: Vertex Vertex Position: Left Occipital Anterior Amniotic Fluid: Meconium (light) Estimated Blood Loss: 250 Delivery Outcome: Liveborn Infant Transferred: Remains with Mother Note: FHTs 130-140 during first stage of labor. Maday felt a stronger urge to push and was found to be fully dilated and +1-+2 station. FHTs 150-160 in second stage and an IV bolus was administered. Maday was catheterized for 400 cc clear fluid prioir to pushing. Second stage huddle was done. Maday began pushing effectively and there was prolonged crowing with category 1 tracing. The shoulders delibered easily and there was a spontaneous delivery of female infant delivered in ABY position. Baby was placed on mother's abdomen and dried and stimulated. Spontaneous cry. Cord was clamped and cut by the baby's father. Maday was noted to be warm and temp was 102 shortly after delivery. The placenta delivered spontaneously and appears to by intact with a three vessel cord. Pitocin 30 units was administered before delivery of the placenta. The perineum was inspected and a small second degree laceration was repaired. The baby did breastfeed. After delivery, Mother and baby and father of the baby were stable and bonding well in the delivery room and there were no complications. Maday reported that she was very warm and heavy blankets were removed and a fan provided and will repeat maternal temp in 1 hour. Providers Nurse General [employer]illery Worker: Bee Lopez Nurse: Marianela Vargas Nurse: Bravo Loya Labor/Delivery Information Number of Babies in Womb: 1 Steroids Given: None Reason Steroids Not Administered: N/A Group Beta Strep: Negative Antibiotics Administered: No Rubella Status: Immune Blood Type: A+ Varicella Immunity: Nonimmune Stages of Labor Onset of Labor Date: 10/29/22 Onset of Labor Time: 17:00 Complete Dilatation Date: 10/30/22 ROM Baby A: 10/29/22 ROM Baby A: 17:00 ROM Total Time- Baby A: [id number] Infant Delivery Date-Baby A: 10/30/22 Delivery Time-Baby A: 12:00 Placenta Delivery Date-Baby A: 10/30/22 Placenta Delivery Time-Baby A: 12:16 Labor-Stage 3 Duration: 16 minutes Total Length of Labor-Baby A: 19 hours and 0 minutes Placenta Status: Delivered Baby A Infant Gender: Female Gestational Status: Term (39-41.6 wks) Gestational Age in Weeks/Days: 40 Weeks and 1 Days Score-1 Minute Interval(Baby A) Heart Rate-1 minute: 100 BPM or Greater Respiratory Effort- 1 minute: Spontaneous/Strong Cry Muscle Tone-1 minute: Active Movement Reflex Response-1 minute: Prompt Response Color-1 minute: Bluish Hands or Feet Total Score-1 minute: 9 Score-5 Minute Interval(Baby A) Heart Rate- 5 minute: 100 BPM or Greater Respiratory Effort-5 minute: Spontaneous/Strong Cry Muscle Tone-5 minute: Active Movement Reflex Response-5 minute: Prompt Response Color-5 minute: Bluish Hands or Feet Total Score- 5 minute: 9 Interventions Repair of Laceration Type: Perineal, Laceration Extension: Second Degree. Sponge Count Correct: No Sponges Placed in Vagina, Sharp Count Correct: Yes. Laceration Repair Note: small perineal laceration repaired with 3-0 vicryl and 4-0 vicryl suture under epidural analgesia.
[2022-10-30] MEDS: Ibuprofen 600 MG TAB PO (13:39)
[2022-10-30] MEDS: Acetaminophen 325 MG TAB 650 MG PO (13:39)
[2022-10-30] MEDS: Hamamelis Leaf/Glycerin 100 EACH BOX PR (13:40)
[2022-10-30] MEDS: Dibucaine 1% 28 GM TUBE TP (13:40)
--- NOTE | 2022-10-30 14:42 | W.PM.OBPNV1 ---
Date of service: 10/30/22 Time of Service: 14:42 Assessment and Plan Assessment and plan (1) Term of female : Status: Acute Assessment and plan: temperature elevations reviewed with Dr Lechuga and she recommended every 4 hour temps x 24 hours. Nursing instructed to report temp >100.0 Subjective Subjective Interval history: Temperature noted to be elevated immediately after delivery to 102.8. Maday reported that she felt very hot and she was cooled with a fan. The temp came down to 100.2 - 1.5 hours after delivery and 98.7 2.5 hours after delivery. Pulse 80-100 which is consistent with intrapartum pulse. baby status: Doing well (febrile initially but cooled off after an hour and Dr Rothman was notified by RN.) Exam Physical Exam Vital signs: Temp Pulse Resp BP Pulse Ox 98.8 F 83 20 96/50 L 96 10/30/22 14:30 10/30/22 14:33 10/30/22 13:30 10/30/22 14:33 10/30/22 08:28 Results Hemoglobin/Hematocrit: Hgb 13.5 g/dL (11.2-15.7) 10/29/22 17:56 Hct 39.2 % (36.0-46.0) 10/29/22 17:56 Abnormal Lab Findings: Abnormal Labs 10/29/22 17:56 Anion Gap 11.6 H Creatinine 0.5 L Alkaline Phosphatase 123 H Albumin 2.9 L
[2022-10-31] MEDS: Acetaminophen 325 MG TAB 650 MG PO (00:45)
[2022-10-31] MEDS: Ibuprofen 600 MG TAB PO (01:15)
[2022-10-31 09:40] VITALS: BP 108/70; PULSE 72; RESP 16; TEMP 36.4; O2SAT 99
--- NOTE | 2022-10-31 10:38 | W.ANESPOSTOP ---
Postoperative Evaluation Date, Time and Location Date Performed: 10/31/22 Time Performed: 10:35 Patient Location: Obstetrics Vital Signs Most Recent Imported Vital Signs: Most Recent Vital Signs Temp Pulse Resp BP Pulse Ox 36.4 C L 72 16 108/70 99 10/31/22 09:40 10/31/22 09:40 10/31/22 09:40 10/31/22 09:40 10/31/22 09:40 Pain Score Most Recent Pain Score: Most Recent Pain Score Pain Level [Lower Abdomen] 1 10/31/22 09:40 Pain Level 4 10/29/22 17:53 Assessment Mental Status: Awake (Alert & Oriented to Patient Baseline) Airway and Respiratory Function: Patent airway with normal (patient baseline) respiratory exam Cardiovascular Function: Hemodynamically Stable Hydration Status: Adequately Hydrated Nausea & Vomiting: No Nausea or Vomiting Pain: Pain is tolerable per patient Peripheral Nerve Block: Patient did not receive a nerve block
[2022-10-31] MEDS: Varicella Virus Vaccine (Live) 0.5 ML SC (11:39)
--- NOTE | 2022-10-31 12:19 | OBPPV_ITS ---
Date of service: 10/31/22 Time of Service: 12:19 Assessment and Plan Assessment and plan (1) Term delivered: Status: Acute Assessment and plan: A: PPD#1 Nml recovery, well Satisfied with experience P: Offer Varicella vaccine prior to discharge Plan discharge when is released Written instructions reviewed and given to pt F/up at 2 & 6 wks Undecided regarding BCM Subjective Subjective Patient comments: No complaints, Pain well controlled, Tolerating diet and Flatus present Patient's Mood: happy [place] baby status: Doing well, Nursing well, Rooming in and Strong Bonding Observed feeding status: Exclusively breast feeding Exam Physical Exam Vital signs: Temp Pulse Resp BP Pulse Ox 97.5 F L 72 16 108/70 99 10/31/22 09:40 10/31/22 09:40 10/31/22 09:40 10/31/22 09:40 10/31/22 09:40 Vital Signs Reviewed: Yes Constitutional Constitutional: no acute distress and cooperative HEENT Exam HEENT Exam: Normal Neck Exam Neck Exam: Normal Breast Exam Bilateral: Breast Exam: Normal and Soft Nipple Exam: Normal and Uninjured Respiratory Exam Respiratory Exam: Normal Cardiovascular Exam Cardiovascular Exam: Normal Abdominal Exam Abdomen: Other (soft, nontender) Fundal Exam Fundus: Below Umbilicus and Firm Rectal Exam Rectal Exam: Normal Exam Patient deferred: perineal exam Perineum: Repair Intact Extremities Exam Extremity Exam: Normal, Full ROM and Warm to Touch Back/Spine/Pelvis Exam Back Exam: Normal Skin Exam Skin Exam: Normal Neurological Exam Neurological Exam: Normal Psychiatric Exam Psychiatric Exam: Normal
--- NOTE | 2022-10-31 14:19 | DSE_ITS ---
Date of service: 10/31/22 Time of Service: 14:19 DS: Diagnosis Discharge Diagnosis (1) Term delivered: Status: Acute Discharge Plan Disposition Patient Disposition: Home Condition: Good Discharge Details Reason For Visit: labor Admit Date/Time: 10/29/22 18:14 Admit Provider: Bee Lopez Attending Provider: Bee Lopez Primary Care Provider: Alan Peterson V Hospital Course Hospital Course: , nml course, pt desires discharge on PPD#1 Home Meds and New Rx's Prescriptions: No Action prenat.vits,kymberly,bzi-ywur-ektns Tablet 1 tab PO DAILY docusate sodium [Colace] 100 mg capsule 100 mg PO BID acetaminophen [Tylenol] 325 mg capsule 325 mg PO ONCE PRN Discharge Instructions Additional Instructions: Please keep 2 and 6 wk appt with midwives, call for any and all concerns. Stand Alone Forms: BC Instructions, BC Post Vaginal Deliver Activity:: Activity as Tolerated Equipment/Supplies:: No Equipment Needed Diet:: Normal Diet Discharge Orders Discharge Orders: Discharge Order (Routine); Ordered 10/31/22 Ordered By: Reshma Fontana OB:DS Summary Summary Vaginal Delivery Method: Spontaneaous Laceration Description: Perineal Laceration Extension: Second Degree Contraception Discussed Contraception Discussed: Yes Contraceptive Plan: Undecided, [place] Gender-Baby A: Female weight: 7 lb 15.515 oz Status at Discharge Functional status at discharge: independent ambulation Overall status at discharge: patient is progressing back to baseline Mental Status: mental status grossly normal Speech and Movement: speech and movement normal and speech clear Mood: congruent mood Affect: normal affect Exam Physical Exam Vital signs: Temp Pulse Resp BP Pulse Ox 97.5 F L 72 16 108/70 99 10/31/22 09:40 10/31/22 09:40 10/31/22 09:40 10/31/22 09:40 10/31/22 09:40 Vital Signs Reviewed: Yes Constitutional Constitutional: no acute distress and cooperative HEENT Exam HEENT Exam: Normal Neck Exam Neck Exam: Normal Breast Exam Bilateral: Breast Exam: Normal and Soft Respiratory Exam Respiratory Exam: Normal Cardiovascular Exam Cardiovascular Exam: Normal Abdominal Exam Abdomen: Other (soft, nontender) Fundal Exam Fundus: Below Umbilicus and Firm Rectal Exam Rectal Exam: Normal Exam Patient deferred: perineal exam Perineum: Repair Intact Extremities Exam Extremity Exam: Normal, Full ROM and Warm to Touch Back/Spine/Pelvis Exam Back Exam: Normal Skin Exam Skin Exam: Normal Neurological Exam Neurological Exam: Normal Psychiatric Exam Psychiatric Exam: Normal PFSH All Active Problems (Updated 10/31/22 @ 12:36 by Reshma Fontana) Term delivered (Acute) Maternal varicella, non-immune (Acute) Medical History (Updated 10/31/22 @ 12:36 by Reshma Fontana) Benign breast cyst in female Delayed menses Dysuria during in second trimester Family history of congenital heart defect and his father Gestational diabetes mellitus (GDM) affecting History of abnormal cervical Pap smear Low lying placenta nos or without hemorrhage, second trimester Term of female Surgical History S/P dilation and curettage Family History (Updated 04/12/22 @ 10:31 by Bee Lopez CNM) Father Heart disease age 65 Sister Thyroid disease Social History Smoking/Tobacco Use Status: Never Smoking risk assessment performed?: Yes Alcohol Intake: never Drug use: Never Substance use type: does not use Housing: house Do you feel safe at home: Yes Do you feel safe in your relationship?: Yes History History 2 Para 0 Hx # Term Pregnancies 0 Multiple births 0 Hx # Pregnancies 0 Ectopic pregnancies 0 AB induced 0 Hx Number of Living Children 0 AB spontaneous 1 Past Pregnancies Del. Date GA/Weeks # Preg Succ Route Wgt Sex Labor Lgth Anesth esia Location [facility] 10/20/20 No Delivery Date: 10/20/20 Last Updated by: Bee Lopez CNM 9 weeks. demise identified by US DS: Data Vitals/I&O Vitals and I&O: Vital Signs Temperature 97.5 F L 10/31/22 09:40 Temperature 98.2 F 10/30/22 03:34 Temperature Source Oral 10/31/22 09:40 Pulse 72 10/31/22 09:40 Pulse 88 10/30/22 03:34 Pulse Rhythm Regular 10/31/22 09:40 Respiratory Rate 16 10/31/22 09:40 Blood Pressure 108/70 10/31/22 09:40 Blood Pressure 119/79 10/30/22 03:34 Blood Pressure Mean 82 10/31/22 09:40 Pulse Oximetry 99 10/31/22 09:40 Oxygen Delivery Method Room Air 10/29/22 17:53 Oxygen Flow Rate 0 10/29/22 17:53 Pain Level 1 10/31/22 09:40 Comment fluid bolus initiated 10/30/22 12:07 Intake & Output 10/30/22 10/31/22 10/31/22 23:59 11:59 23:59 Output Total 1000 / 2550 Balance -1000 / -2032.2 Output: Urine 1000 / 2550 Other: Urine Color Pale Urine Appearance Clear Urine Odor None Comment straight cath
[2022-10-31 14:55] VITALS: BP 109/70; PULSE 81; RESP 16; TEMP 36.6; O2SAT 97
== END 2022-10-31 15:30 | disposition home or self-care (01) | DRG 806 ==
LOC: OBS 18:16 → BCD 11-03 08:17 → OBS 11-03 08:17
PROVIDERS: Admitting Provider Advanced Practice Midwife; PCP Physician Assistant Medical; Visit Provider Advanced Practice Midwife
DX: O24.420 Gestational diabetes mellitus in childbirth, diet controlled (principal); O75.2 Pyrexia during labor, not elsewhere classified; Z37.0 Single live birth; Z3A.40 40 weeks gestation of pregnancy; O70.1 Second degree perineal laceration during delivery
CPT/HCPCS: 80053; 84112; 85027; 86850; 86900; 86901; 59025; J2405

== ENCOUNTER 2023-05-09 15:40 | Outpatient (REF) | payer BC, SELFPAY | END 2023-05-09 15:41 | disposition home or self-care (01) | LOC: NCHCN 15:40 | PROVIDERS: PCP Physician Assistant Medical; Visit Provider Student in an Organized Health Care Education/Training Program | DX: R20.8 Other disturbances of skin sensation (principal) | CPT/HCPCS: 84443 ==

== ENCOUNTER 2023-09-13 15:18 | Outpatient (REF) | payer BC, SELFPAY ==
--- OUTSIDE RECORDS SUMMARY | 2023-09-13 15:23 | XMS_ITS | Encounter Summary ---
Author Organization [facility] [place] [address] Care Team Providers Care Director Clinical Operations Name Role Phone None Primary Care Provider Unavailabl e Encounter Details Date Type Department Care Team (Latest Contact Info) Description 04/14/2021 10:15 AM EST Laboratory Appointment Lab 3L [facility] [place] [id number] History and physical examination, immigration Social History Tobacco Use Types Packs/Day Years Used Date Smoking Tobacco: Never Smokeless Tobacco: Never Sex and Gender Information Value Date Recorded Sex Assigned at Female 06/08/2022 4:55 PM EDT Gender Identity Female 06/08/2022 4:55 PM EDT Sexual Orientation Straight 06/08/2022 4: 55 PM EDT documented as of this encounter Plan of Treatment Not on file documented as of this encounter Procedures Procedure Name Priority Date/Time Associated Diagnosis Comments HC GC GENE AMP Routine 04/14/2021 10:22 AM EST History and physical examination, immigration documented in this encounter Results * GC Gene Amp ([facility] [place]H) Urine (04/14/2021 10:22 AM EST) GC Gene Amp Negative Negative [facility] Comment: The only FDA approved specimen types for this assay are cervical, vaginal, urethral and urine. Non-FDA approved sources are eye, throat and rectal and have been internally validated. GC Source Urine [facility] Urine 04/14/2021 10:2 2 AM EST 04/14/2021 10:49 AM EST Narrative Resulting Agency Comment Spec In Lab Hanna Holbrook MD MICROBIOLOGY - GENER AL ORDERABLES Performing Organization Address City/State/[facility] Co de Phone Number [facility] [place] [address] documented in this encounter Visit Diagnoses Diagnosis History and physical examination, immigration Other general medical examination for administrative purposes documented in this encounter Care Teams Director Clinical Operations Relationship Specialty Start Date End Date None None PCP - General 03/30/21 documented as of this encounter
--- OUTSIDE RECORDS SUMMARY | 2023-09-13 15:23 | XMS_ITS | Encounter Summary ---
Author Organization [facility] Address [address] [place] [address] Care Team Providers Care Director Specialty Name Role Phone ANDREW Shrestha Benjamin Primary Care Provider Encounter Details Date Type Department Care Team (Late st Contact Info) Description 04/12/2022 Lab Requisition [facility] Pathology & Laboratory Medicine - [facility] [address], [place] [id number] Outr Resulting Lab, Provider Social History Tobacco Use Types Packs/Day Years Used Date Smoking Tobacco: Never Assessed Interpersonal Safety Answer Date Record ed Physically Hurt Never 02/05/2020 Verbally Threaten Not on file 02/05/2020 Sex and Gender Information Value Date Recorded Sex Assigned at Not on file Gender Identity Not on file Sexual Orientation Not on file documented as of this encounter Plan of Treatment Not on file documented as of this encounter Procedures Procedure Name Priority Date/Time Associated Diagnosis Comments RUBELLA IGG ANTIBODY Routine 04/12/2022 11:18 EST VARICELLA IGG ANTIBODY Routine 04/12/2022 11:18 EST documented in this encounter Results * VARICELLA IGG ANTIBODY (04/12/2022 11:18 EST) Varicella IgG Ab Negative See Note 04/13/2022 12:31 EST [facility] Comment:Absence of detectabl e Varicella Zoster virus IgG antibodies. A negative result generally indicates no detectable antibody, but does not rule out acute infection. If VZV exposure is suspected, a second sample should be collected and tested no less than one or two weeks later. Blood VENOUS BLOOD / Unknown 04/12/2022 11:18 EST 04/12/2022 22:35 EST Provider Outr Resulting Lab IMMUNOLOGY A ND SEROLOGY ORDERABLES Performing Organization Address [facility] Co de Phone Number [facility] [address] [place] [address] * RUBELLA IGG ANTIBODY (04/12/2022 11:18 EST) Rubella IgG Ab Positive See Note 04/13/2022 12:34 EST [facility] Comment:Positive for IgG ant ibodies to Rubella virus. Blood VENOUS BLOOD / Unknown 04/12/2022 11:18 EST 04/12/2022 22:35 EST Provider Outr Resulting Lab CHEMISTRY & BLOOD GAS ORDERABLES Performing Organization Address [facility] Co de Phone Number [facility] [address] [place] [address] documented in this encounter Visit Diagnoses Not on filedocumented in this encounter Care Teams Director Specialty Relationship Specialty Start Date End Date Alan Peterson MPA-C [address] [place] [id number] PCP - General 10/02/20 documented as of this encounter
--- OUTSIDE RECORDS SUMMARY | 2023-09-13 15:23 | XMS_ITS | Clinical Summary ---
Author Organization [facility] Address [address] [place] [address] Care Team Providers Care Powder Mill Operator Name Role Phone ANDREW Shrestha Benjamin Primary Care Provider Social History Tobacco Use Types Packs/Day Years Used Date Smoking Tobacco: Never Assessed Interpersonal Safety Answer Date Record ed Physically Hurt Never 02/05/2020 Verbally Threaten Not on file 02/05/2020 Sex and Gender Information Value Date Recorded Sex Assigned at Not on file Gender Identity Not on file Sexual Orientation Not on file Plan of Treatment Health Maintenance Due Date Last Done Comments Hepatitis B Vaccine (1 of 3 - 19+ 3-dose series) 12/21 COVID-19 Vaccine (2022- season) 2022 Hepatitis C Screen Completed 04/12/2022 Procedures Procedure Name Priority Date/Time Associated Diagnosis Comments HEPATITIS C AB W REFLEX TO HCV RNA BY PCR Routine 04/12/2022 11:18 EST from Last 3 Months or Most Recently Relevant to Health Maintenance Results * HEPATITIS C AB W REFLEX TO HCV RNA BY PCR (04/12/2022 11:18 EST) Hep C Antibody Negative Negative 04/17/2022 21:53 EST [facility] Blood VENOUS BLOOD / Unknown 04/12/2022 11:18 EST 04/12/2022 22:35 EST Provider Outr Resulting Lab CHEMISTRY & BLOOD GAS ORDERABLES [facility] [address] [place] [address] from Last 3 Months or Most Recently Relevant to Health Maintenance Care Teams Powder Mill Operator Relationship Specialty Start Date End Date Alan Peterson MPA-C [address] [place] [id number] [facility] - General 10/02/20
--- OUTSIDE RECORDS SUMMARY | 2023-09-13 15:23 | XMS_ITS | Encounter Summary ---
Author Organization [facility] Address [address] [place] [address] Care Team Providers Care Plastics Nurse Name Role Phone ANDREW Shrestha Benjamin Primary Care Provider Encounter Details Date Type Department Care Team (Late st Contact Info) Description 04/13/2022 Lab Requisition [facility] Pathology & Laboratory Medicine - [facility] [address] [place] [address] [place], [place] [id number] Encounter for other general examination Social History Tobacco Use Types Packs/Day Years [...] Procedure Name Priority Date/Time Associated Diagnosis Comments PAP TEST Today 04/12/2022 10:00 EST Encounter for other general examination documented in this encounter Results * PAP TEST (04/12/2022 10:00 EST) Specimens A. Cervix and/or Endocervix , ThinPrep Imaging System with Manual Evaluation 04/25/2022 11:10 EST [facility] Specimen Adequacy Satisfactory for Evaluation - transformation zone component present 04/25/2022 11:10 EST [facility] General Categorization Negative for intraepithelial lesion or malignancy 04/25/2022 11:10 EST [facility] Attestation . 04/25/2022 11:10 [facility] at [address]10 Clinical History See below 04/25/19 11:10 EST [facility] Performing Lab [facility] 04/25/2022 11:10 EST [facility] Scanned Images 04/25/2022 11:10 EST [facility] Papanicolaou smear specimen (specimen) CERVIX UTERI STRUCTURE / Unknown 04/12/2022 10:00 EST 04/13/2022 12:36 EST Bee Lopez [facility] KAMRYN [place]ARTON [facility] [address] [place] [address] documented in this encounter Visit Diagnoses Diagnosis Encounter for other general examination documented in this encounter Care Teams Plastics Nurse Relationship Specialty Start Date End Date Alan Peterson MPA-C [address] [place] [address] PCP - General 10/02/20 documented as of this encounter
--- OUTSIDE RECORDS SUMMARY | 2023-09-13 15:23 | XMS_ITS | Encounter Summary ---
Author Organization [facility] Address [facility] [place] [place] [address] Care Team Providers Care Oil Processing Technician Name Role Phone None Primary Care Provider Unavailabl e Encounter Details Date Type Department Care Team (Late st Contact Info) Description 04/07/2021 Orders Only Infectious Disease at [facility] [place] [address] Hanna Kincaid MD [facility] [place] [address] History and physical examination, immigration Social History Tobacco Use Types Packs/Day Years Used Date Smoking Tobacco: Never Smokeless Tobacco: Never Sex and Gender Information Value Date Recorded Sex Assigned at Female 06/08/2022 4:55 PM EDT Gender Identity Female 06/08/2022 4:55 PM EDT Sexual Orientation Straight 06/08/2022 4: 55 PM EDT documented as of this encounter Progress Notes * Hanna Kincaid MD - 04/07/2021 3:06 PM EST Pt was told she could she could leave lab without giving a urine sample for GC testing. Called pt and she will come in next week for this test and I have placed an order. She is also getting Tdap andflu vaccines at local pharmacy, discussing with her OB whether to get MMR (had neg test yesterday) or titers. documented in this encounter Plan of Treatment Not on file documented as of this encounter Results * GC Gene Amp [place] [place] Urine (04/14/2021 10:22 AM EST) GC Gene Amp Negative Negative [facility] Comment: The only FDA approved specimen types for this assay are cervical, vaginal, urethral and urine. Non-FDA approved sources are eye, throat and rectal and have been internally validated. GC Source Urine [facility] Urine 04/14/2021 10:2 2 AM EST 04/14/2021 10:49 AM EST Narrative Resulting Agency Comment Spec In Lab Hanna Holbrook MD MICROBIOLOGY - GENER AL ORDERABLES [facility] [place] [address] documented in this encounter Visit Diagnoses Diagnosis History and physical examination, immigration Other general medical examination for administrative purposes documented in this encounter Care Teams Oil Processing Technician Relationship Specialty Start Date End Date None None PCP - General 03/30/21 documented as of this encounter
--- OUTSIDE RECORDS SUMMARY | 2023-09-13 15:23 | XMS_ITS | Encounter Summary ---
Author Organization [facility] Address [address] [place] [address] Care Team Providers Care Balance Truing Inspector Name Role Phone ANDREW Shrestha Benjamin Primary Care Provider Encounter Details Date Type Department Care Team (Late st Contact Info) Description 04/13/2022 Lab Requisition [facility] Pathology & Laboratory Medicine - [address] [address] Outr Resulting Lab, Provider Social History Tobacco [...] Procedure Name Priority Date/Time Associated Diagnosis Comments CHLAMYDIA/N. GONORRHOEAE AMPLIFIED NUCLEIC ACID Routine 04/12/2022 10:00 EST documented in this encounter Results * CHLAMYDIA/N. GONORRHOEAE AMPLIFIED RNA (04/12/2022 10:00 EST) Neisseria gonorrhoeae Result Negative Negative 04/14/2022 13:34 EST [facility] Chlamydia trachomatis Result Negative Negative 04/14/2022 13:34 EST [facility] Swab ENTIRE WALL OF CERVIX / Unknown 04/12/2022 10:00 EST 04/13/2022 22:13 EST Provider Outr Resulting Lab MICROBIOLOGY - GENERAL ORDERABLES [facility] [address] [place] [address] documented in this encounter Visit Diagnoses Not on filedocumented in this encounter Care Teams Balance Truing Inspector Relationship Specialty Start Date End Date Alan Peterson V, ANDREW [address] [place] [address] PCP - General 10/02/20 documented as of this encounter
--- OUTSIDE RECORDS SUMMARY | 2023-09-13 15:23 | XMS_ITS | Encounter Summary ---
Author Organization [facility] [place] [address] Care Team Providers Care Chief Unit Forester Name Role Phone None Primary Care Provider Unavailabl e Encounter Details Date Type Department Care Team (Latest Contact Info) Description 03/30/2021 3:42 PM EST - 03/30/2021 11:59 PM EST [place] [address] Discharge Disposition: Home Social History Tobacco Use Types Packs/Day Years Used Date Smoking Tobacco: Never Smokeless Tobacco: Never Sex and Gender Information Value Date Recorded Sex Assigned at Female 06/08/2022 4:55 PM EDT Gender Identity Female 06/08/2022 4:55 PM EDT Sexual Orientation Straight 06/08/2022 4: 55 PM EDT documented as of this encounter Medications at Time of Discharge Medication Sig Dispensed Refills Start Date End Date cholecalciferol, Vitamin D3, (Vitamin D3) 125 mcg (5,000 unit) tablet Take 5,000 Units by mouth daily. 06/08/2022 ascorbic acid, vitamin C, (VITAMIN C) 500 mg Tablet, Chewable Take 1 tablet by mouth daily. 06/08/2022 documented as of this encounter Plan of Treatment Not on file documented as of this encounter Visit Diagnoses Not on filedocumented in this encounter Care Teams Chief Unit Forester Relationship Specialty Start Date End Date None None PCP - General 03/30/21 documented as of this encounter
--- OUTSIDE RECORDS SUMMARY | 2023-09-13 15:23 | XMS_ITS | Encounter Summary ---
Author Organization [place] [address] Care Team Providers Care Design Supervisor Name Role Phone None Primary Care Provider Unavailabl e Encounter Details Date Type Department Care Team (Latest Contact Info) Description 06/04/2022 Travel Social History Tobacco Use Types Packs/Day Years [...] on filedocumented in this encounter Care Teams Design Supervisor Relationship Specialty Start Date End Date None None PCP - General 03/30/21 documented as of this encounter
--- OUTSIDE RECORDS SUMMARY | 2023-09-13 15:23 | XMS_ITS | Encounter Summary ---
Author Organization [facility] Address [facility] [place] [address] Care Team Providers Care Escalator Service Mechanic Name Role Phone None Primary Care Provider Unavailabl e Reason for Visit * Consultation (Routine) - Closed Specialty Diagnoses / Procedures Referred By Dre t Referred To Contact Obstetrics and Gynecology Diagnoses Family history of other congenital malformations, deformations and chromosomal abnormalities Encounter for supervision of normal , unspecified, unspecified trimester Bee Lopez, LUANN [address] [place] [address] [place] [address] [facility] [employer] [address] [place] [address] Referral ID Status Reason Start Date Expiration Date Visits Re quested Visits Authorized [id number] Closed 04/13/2022 04/13/2023 1 1 Encounter Details Date Type Department Care Team (Late st Contact Info) Description 06/08/2022 2:00 PM EDT Routine Obstetrics [place] [address] Nancy Cerda MD [facility] DR OBSTETRICS & [place] [address] GA: 19w4d Social History Tobacco Use Types Packs/Day Years Used Date Smoking Tobacco: Never Smokeless Tobacco: Never Tobacco Cessation:Counseling Given: Not Answered Alcohol Use Standard Drinks/Week Comments Not Currently 0 (1 standard drink = 0.6 oz pur e alcohol) Comments Yes Sex and Gender Information Value Date Recorded Sex Assigned at Female 06/08/2022 4:55 PM EDT Gender Identity Female 06/08/2022 4:55 PM EDT Sexual Orientation Straight 06/08/2022 4: 55 PM EDT documented as of this encounter Last Filed Vital Signs Vital Sign Reading Time Taken Comments Blood Pressure 122/62 06/08/2022 11:00 AM EDT Pulse - - Temperature - - Respiratory Rate - - Oxygen Saturation - - Inhaled Oxygen Concentration - - Weight 70.7 kg (155 lb 14.4 oz) 023 11:00 AM EDT Height - - Body Mass Index 24.42 03/30/2021 11:02 AM EST documented in this encounter Progress Notes * Nancy Cerda MD - 06/08/2022 2:00 PM EDT Diagnosis/Maternal Medicine Consult Note Maday Zapata is a 31 y.o. year old female who is at 19w5d gestation. She is seen in consultation at the request of Bee Lopez CNM for evaluation of family history of congenital heart disease. She was seen today for maternal- medicine consultation, ultrasound evaluation and genetic counseling with Davey Marroquin. She had a echocardiogram today with unremarkable cardiac anatomy Review of Systems Constitutional:feels well Movement: normal Contractions: none Leaking: None Bleeding: None There are no problems to display for this patient. No past medical history on file. Past Surgical History: Procedure Laterality Date ??? BREAST CYST EXCISION ??? DILATION AND CURETTAGE OF UTERUS Family History Problem Relation Age of Onset ??? Heart Defect Father of Baby ??? Heart Defect Father of Baby Relative Social History Occupational History ??? Not on file Tobacco Use ??? Smoking status: Never ??? Smokeless tobacco: Never Vaping Use ??? Vaping Use: Never used Substance and Sexual Activity ??? Alcohol use: Not Currently ??? Drug use: Never ??? Sexual activity: Not on file OB History 2 Para Term AB 1 Living SAB 1 IAB Ectopic Multiple Live Births # Outc Date GA Lbr Buddy/2nd Wgt Sex Del Anes PTL Lv 1 SAB 10/2020 2 Current Current Outpatient Medications Medication Sig Dispense Refill ??? vit/iron fum/folic ac ( 1+1 ORAL) Take by mouth. No current facility-administered medications for this visit. No Known Allergies Ultrasound Date: 06/08/2022 Amniotic fluid volume normal Presentation cephalic Placenta posterior Growth appropriate for gestational age anatomy unremarkable, limited views of abdominal wall and abdominal cord insertion Physical Exam BP 122/62 Wt 70.7 kg (155 lb 14.4 oz) LMP 01/17/2022 BMI 24.42 kg/m?? General: alert, well appearing, in no apparent distress HEENT: normocephalic, atraumatic Abdomen: Soft, nontender Neurologic:alert, oriented, normal speech, no focal findings or movement disorder noted Psychiatric: Affect is Appropriate. Assessment and Recommendations: 31 y.o. year old female at 19w5d weeks gestation, referred for counseling regarding family history of congenital heart defect. I spent 30 minutes in face to face time with the patient of which 80% was in direct counseling, and a total of 10 minutes in patient care reviewing records and discussing her with other consultants. We reviewed the ultrasound findings and limitations of ultrasound in detecting anomalies and aneuploidy. The growth, fluid, and anatomy appear unremarkable except views of the abdominal wall and cord insertion were limited. The placenta maybe low lying < 2cm from the internal os. I recommend a follow up ultrasound to reassess placenta location and the abdominal wall. I appreciate the opportunity to be involved in this patients care, and am available if further questions should arise. NANCY CERDA MD 06/08/2022 Cc: Bee Lopez, [address] [place] [address] , with copy of ultrasound report documented in this encounter Plan of Treatment Not on file documented as of this encounter Visit Diagnoses Diagnosis Family history of complex congenital heart disease documented in this encounter Care Teams Escalator Service Mechanic Relationship Specialty Start Date End Date None None PCP - General 03/30/21 documented as of this encounter
--- OUTSIDE RECORDS SUMMARY | 2023-09-13 15:23 | XMS_ITS | Encounter Summary ---
Author Organization [facility] Address [facility] [place] [address] Care Team Providers Care Correctional Classification Counselor Name Role Phone None Primary Care Provider Unavailabl e Encounter Details Date Type Department Care Team (Late st Contact Info) Description 03/30/2021 11:15 AM EST Office Visit [place]ious [place] [address] Hanna Kincaid MD [facility] [place] [address] History and physical examination, immigration Social History [...] Sign Reading Time Taken Comments Blood Pressure 104/67 03/30/2021 11:02 AM EST Pulse 89 03/30/2021 11:02 AM EST Temperature 36.7 ??C (98.1 ??F) 03/30/2021 11:[address] Respiratory Rate 16 03/30/2021 11:02 AM EST Oxygen Saturation 100% 03/30/2021 11:02 AM EST Inhaled Oxygen Concentration - - Weight 63.2 kg (139 lb 4.8 oz) 03/30/2021 11:02 AM EST Height 170.2 cm (5' 7) 03/30/2021 11:02 AM EST stated Body Mass Index 21.82 03/30/2021 11:02 AM EST documented in this encounter Progress Notes * Hanna Kincaid MD - 03/30/2021 11:15 AM EST Civil Surgeon Clinic CC: Patient seeking to adjust immigration status HPI: Maday Zapata is a 30 y.o. year old female from the [facility] who presents for a civil surgeon exam for adjustment of status. I reviewed government issued picture identification to confirm identity then reviewed the available medical and vaccination history. PMHx: S/p D&C for a miscarriage at 9 weeks on Oct 08, 2020 in [facility]. S/p cyst excision from right breast in June 2018. No other hospitalizations or surgeries. No history of cardiac or pulmonary disease. Patient reports is not , LMP 02/24/2021, expecting her next menses now, not actively tryingto conceive, plan to resume attempting conception in May. Pt reports no known immunosuppression. Patient has no history of treatment for active TB or known TB contact, and reports no current cough,fevers, night sweats or unintended weight loss. Pt reports no genital discharge or lesions, or painf ul urination. No history of STIs. PE: Well appearing. HEENT: clear OP, EOMI, PERRL, no cervical nodes Axilla: No axillary nodes Lungs: CTA Cardiac: RRR without murmur Abd: Soft, NT, no hepatosplenomegaly Skin: No rash Neuro: Motor and sensation are normal, DTRs normal, Rhomberg normal. Mental Status: A & O x 3, nl affect, Speech and language nl flow, no apparent anxiety, thought processes and content appears normal. Together we determined that the following are needed for adjustment of status: Testing ?? Syphilis ?? Gonorrhea (informed pt that the GC test includes chlamydia testing which is not required for civil surgeon exam, that no additional charge will be incurred, will only be informed if result is positive) ?? TB screening by [facility] Vaccinations ?? Tdap ?? Flu ?? MMR - advised of contraindication and need to delay attempts at conception for at least one month after receiving. Pt understands this timeline. The patient elects to do TB, GC and syphilis screening here today and vaccines at local pharmacy and will send us the documentation. The patient was informed of the 2 year expiry date for the I-693 form and instructed in appropriatehandling of the completed form in its sealed envelope, which we will send to the patient. Hanna Kincaid MD Civil Surgeon documented in this encounter Miscellaneous Notes * Addendum Note - Nicho Lawrence - 03/30/2021 11:15 AM ESTAddended by: NICHO LAWRENCE on: 03/30/2021 12:39 PM Modules accepted: Orders documented in this encounter Plan of Treatment Not on file documented as of this encounter Procedures Procedure Name Priority Date/Time Associated Diagnosis Comments MISCELLANEOUS LAB REQUEST Routine 03/30/2021 12:54 PM EST History and physical examination, [facility] Routine 03/30/2021 12:54 PM EST HC VENIPUNCTURE Routine 03/30/2021 12:54 PM EST History and physical examination, immigration GOLD TUBE HOLD Routine 03/30/2021 12:54 PM EST documented in this encounter Results * [facility] (03/30/2021 12:54 PM EST) [facility] Sendout See Note [facility] Comment: The ordered test is: RPR Titer Test performed by: [facility], [address] [place] [id number] See Scanned Report. Blood Venous Draw / Unknown 03/30/2021 12:54 PM EST 03/30/2021 2:44 PM EST Hanna Holbrook MD CHEMISTRY ORDERABLES [facility] [place] [address] * Gold Tube HOLD (03/30/2021 12:54 PM EST) Gold Hold Sample in lab. [facility] Blood No Charge / Unknown 03/30/2021 12:54 PM EST 03/30/2021 2:[address] Aruna Cordoba MD CHEMISTRY ORDERABLES [facility] [place] [address] * Miscellaneous Lab request (03/30/2021 12:54 PM EST) [facility] Lab Result Request received in lab. [facility] Blood 03/30/2021 12:5 4 PM EST 03/30/2021 2:48 PM EST Narrative Resulting Agency Comment Spec In Lab Hanna Holbrook MD HEMATOLOGY ORDERABLE S Performing Organization Address City/[facility]/ZIP Co de Phone Number [facility] [place] [address] * QuantiFERON-TB Gold (03/30/2021 12:54 PM EST) [facility] QFT Nil 0.060 IU/mL [facility] QFT TB Ag1-Nil -0.010 IU/mL [facility] QFT TB Ag2-Nil 0.000 IU/mL [facility] QFT Mitogen-Nil >10.000 IU/mL [facility] Quantiferon TB Negative Negative [facility] Quantiferon TB Interp M. tuberculosis infection NOT likely A negative specimen should have a TB1 Ag minus Nil value and TB2 Ag minus Nil value of less than 0.35 IU/mL OR a TB1 Ag minus Nil or TB2 Ag minus Nil value greater than or equal to 0.35 IU/mL AND a TB Ag minus Nil value from the same tube of less than 25% of the Nil value. A negative specimen must also have a mitogen minus Nil value greater than or equal to 0.5 IU/mL. A negative QFT-Plus result does not preclude the possibility of M. tuberculosis infection. False negative results can occur due to stage of infection (specimen obtained prior to the development of immune response), co-morbid conditions which affect immune function, or other immunological factors. [facility] Comment: The performance of the QFT-Plus assay has not been extensively evaluated with specimens from the following individuals: Individuals who have impaired or altered immune functions, such as those who have HIV infection or AIDS, those who have transplantation managed with immunosuppressive treatment or others who receive immunosuppressive drugs (e.g., corticosteroids, methotrexate, azathioprine, cancer chemotherapy), those who have other clinical conditions, such as diabetes, silicosis, chronic renal failure, and hematological disorders (e.g., leukemia and lymphomas), or those with other specific malignancies (e.g., carcinoma of the head or neck and lung). Individuals younger than age 17 years women. Diagnosis of, or the exclusion of tuberculosis disease, and assessment of Latent Tuberculosis Infection (LTBI) requires a combination of epidemiological, historical, Medical and diagnostic findings that should be taken into account when interpreting QFT-Plus results. Blood 03/30/2021 12:5 4 PM EST 03/31/2021 10:56 AM EST Narrative Resulting Agency Comment Spec In Lab Hanna Holbrook MD CHEMISTRY ORDERABLES [facility] [place] [address] documented in this encounter Visit Diagnoses Diagnosis History and physical examination, immigration Other general medical examination for administrative purposes documented in this encounter Care Teams Correctional Classification Counselor Relationship Specialty Start Date End Date None None PCP - General 03/30/21 documented as of this encounter
--- OUTSIDE RECORDS SUMMARY | 2023-09-13 15:23 | XMS_ITS | Encounter Summary ---
Author Organization [facility] [place] [address] Care Team Providers Care Alliances Consultant Name Role Phone None Primary Care Provider Unavailabl e Encounter Details Date Type Department Care Team (Late st Contact Info) Description 06/08/2022 11:00 AM EDT Office Visit Pediatric Cardiology at [facility] [place] [address] Brandon Valente, [facility] [place] [address] Family history of bicuspid aortic valve; Supervision of high risk in second trimester Social History Tobacco Use Types Packs/Day Years Used Date Smoking Tobacco: Never Smokeless Tobacco: Never Alcohol Use Standard Drinks/Week Comments Not Currently 0 (1 standard drink = 0.6 oz pur e alcohol) Comments Yes Sex and Gender Information Value Date Recorded Sex Assigned at Female 06/08/2022 4:55 PM EDT Gender Identity Female 06/08/2022 4:55 PM EDT Sexual Orientation Straight 06/08/2022 4: 55 PM EDT documented as of this encounter Progress Notes * Brandon Valente DO - 06/08/2022 11:00 AM EDT Cardiology Clinic Referring OB provider: KELVIN Bustos[address] [place] [address] Indication for Evaluation: Patient history: I was asked by Bee Lopez to see Maday for advice regarding cardiac risk associated with her 's bicuspid aortic valve (BAV). Maday is a 31 y.o. female who is currently at 19-4/7 weeks gestation based on an EDC of 10/29/22. She has a visit with Dr. Mendez in our [facility] department this afternoon with detailed anatomy scan planned at that time. She has not reported any complications with the . She plans to deliver at [facility] if there are no complications with . Medications: Current Outpatient Medications on File Prior to Visit Medication Sig Dispense Refill ??? ondansetron (Zofran) 4 mg tablet TAKE 1 TABLET BY MOUTH EVERY 8 HOURS NEEDED FOR NAUSEA OR VOMITING ??? cholecalciferol, Vitamin D3, (Vitamin D-3) 125 mcg (5,000 unit) Tablet Take 5,000 Units by mouth daily. ??? ascorbic acid, vitamin C, (VITAMIN C) 500 mg Tablet, Chewable Take 1 tablet by mouth daily. No current facility-administered medications on file prior to visit. Past Medical History: No significant past medical history. Family Medical History: Pritesh Zapata and his father both have a bicuspid aortic valve (BAV). Neither has needed intervention for this and Yonis thinks his valvular disease is very mild as he had not followed up with cardiology in many years. No other history of congenital heart disease (CHD) in his family and none known with Shaloms. She is from the [facility] and all of her extendedfamily remains living there. Social History: Live in [facility]. She denies tobacco and alcohol use in the . echocardiogram results: A complete echocardiogram was performed today which demonstrates: ?? Single intrauterine with levocardia, visceral situs solitus, [S,D,S] normal segmental anatomy with normal chamber dimensions. ?? heart rate and rhythm were normal throughout the study. ?? The tricuspid valve appears normal. There is no evidence of tricuspid insufficiency. ?? The mitral valve appears normal. There is no evidence of mitral regurgitation. ?? Qualitatively, there is normal biventricular size and function. ?? No evidence of pulmonary stenosis or insufficiency. ?? No evidence of aortic stenosis or insufficiency. ?? Flow across the aortic arch appears unobstructed with no evidence of coarctation of the aorta. ?? Ductus arteriosus with nonrestricted right to left flow. ?? Moderate size foramen ovale with right to left flow. ?? No evidence of a VSD. ?? No evidence of a pericardial effusion. ? Normal umbilical artery and umbilical vein flow patterns. Normal flow pattern in the ductus venosus. ?? See full report for further details. Diagnosis: ?? 31 y.o. female at 19-4/7 weeks gestation ?? No evidence of cardiac abnormality on echocardiogram today Recommendation: ?? ?I have reviewed normal cardiac anatomy with Maday and relayed that I see no evidence ofa major structural cardiac abnormality on my imaging today. ?? I have also relayed that echocardiography may not be able to detect certain septal defects, coarctation of the aorta, or subtle valve abnormalities, nor can it predict the persistence of structures related to circulation such as a patent foramen ovale or a patent ductus arteriosus. We discussed that specifically a bicuspid aortic valve cannot be excluded by a echocardiogram, but there are no concerns today for aortic stenosis and the valve leaflets appear thin, as well as no ascending aorta dilation. ?? We discussed the baby will be evaluated by the excellent pediatrics team at [facility] and if there are any murmurs or abnormal findings, a routine visit and echo would be indicated to look at the valvecloser. However, since the imaging today is normal, if the has a normal exam as anticipated,a one-time echo can wait several years and be performed routinely in the 5-10 year range. ?? Future children with Pritesh should also be screened given the risk of bicuspid aortic valve (BAV) is estimated to be 3-5% with father and grandfather both having the defect. I appreciate the opportunity to participate in the care of this patient. Please feel free to contact me for any further questions or concerns. Total visit time was 40 minutes with more than 50 percent of the time spent in counseling, exclusive of procedural time, to discuss normal cardiac anatomy and physiology, review of today's echocardiogram results and review of those findings which can and cannot be prenatally detected as described above. Brandon Valente DO [facility] Pediatric Cardiology documented in this encounter Plan of Treatment Not on file documented as of this encounter Visit Diagnoses Diagnosis Family history of bicuspid aortic valve Family history of other cardiovascular diseases Supervision of high risk in second trimester Unspecified high-risk documented in this encounter Care Teams Alliances Consultant Relationship Specialty Start Date End Date None None PCP - General 03/30/21 documented as of this encounter
--- OUTSIDE RECORDS SUMMARY | 2023-09-13 15:23 | XMS_ITS | Encounter Summary ---
Author Organization [facility]ly [facility] [place] [address] Care Team Providers Care Animal Caregiver Name Role Phone None Primary Care Provider Unavailabl e Reason for Referral * Diagnostic Test (Routine) - Closed Specialty Diagnoses / Procedures Referred By Dre t Referred To Contact Diagnoses Family history of bicuspid aortic valve Procedures Echo [facility] [address] [place] [address] [facility] [place] [address] Referral ID Status Reason Start Date Expiration Date V isits Requested Visits Authorized [id number] Closed Specialty Service Requested 04/20/2022 04/20/2023 1 1 Reason for Visit * Diagnostic Test (Routine) - Closed Specialty Diagnoses / Procedures Referred By Contac t Referred To Contact Diagnoses Family history of bicuspid aortic valve Procedures Echo Joan Lopez CNM [address] [place] [address] [address] [place] [address] [facility] [place] [address] Referral ID Status Reason Start Date Expiration Date V isits Requested Visits Authorized [id number] Closed Specialty Service Requested 04/20/2022 04/20/2023 1 1 Encounter Details Date Type Department Care Team (Latest Contact Info) Description 06/08/2022 10:14 AM EDT - 06/08/2022 11:40 AM EDT Hospital Encounter [place] [address] Joan Lopez, LUANN [address] [place] [address] [address] [place] [address] Family history of bicuspid aortic valve Discharge Disposition: Home Social History Tobacco Use [...] Procedure Name Priority Date/Time Associated Diagnosis Comments ECHO COMPLETE Routine 06/08/2022 1 1:34 AM EDT Family history of bicuspid aortic valve documented in this encounter Results * ECHO COMPLETE (06/08/2022 11:34 AM EDT) Anatomical Region Laterality Modality Cardiac Other 06/08/2022 10:3 0 AM EDT Narrative 06/08/2022 11:33 AM EDT Echocardiogram Report Name: JUDY ZAPATA ? Study Date: 06/08/2022 ? Patient Location: 4A : 1990 ? Gender: Female Age: 31 yrs Reason For Study: Family history of bicuspid aortic valve Ordering Physician: JOAN LOPEZ Referring Physician: JOAN LOPEZ Performed By: Tricia Lezama RDCS Exam Location: [facility]. Interpretation Summary This is a 19-4/7 week fetus. The estimated due date is 10/29/22. Average visualization for gestational age. 1. Levocardia, normal (S,D,S) segmental relationships. 2. No congenital heart disease identified.* 3. No significant valve dysfunction. Specifically no aortic stenosis, regurgitation, and no thickening of the valve tissue. 4. Qualitatively normal biventricular size and systolic function. 5. No arrhythmia detected. 6. No hydrops. *Prenatally cannot exclude certain septal defects, coarctation of the aorta, partial pulmonary venous anomalies, coronary anomalies, or subtle valve abnormalities, and cannot predict the persistence of structures of circulation such as a PDA or PFO. The results of today's study were discussed with the patient. Please see office note regarding the details of this consultation. Position Single intrauterine . Vertex presentation. Cardiac Position Levocardia. Cardiac Segments {S,D,S}. Veins The inferior vena cava appears normal. The superior vena cava appears normal. There is no evidence of an LSVC. Color and spectral Doppler flow patterns of at least one right and one left pulmonary vein appear normal. Atria There is no evidence of right atrial enlargement. There is no evidence of left atrial dilatation. Mitral Valve The mitral valve appears normal. There is a normal biphasic inflow pattern across the valve. There is no evidence of mitral regurgitation by color and spectral Doppler. The mitral diameter at the annulus measures 0.51 cm (Joseph Z-score +0.64). Tricuspid Valve The tricuspid valve appears normal. There is a normal biphasic inflow pattern across the valve. There is no evidence of tricuspid insufficiency. The tricuspid diameter at the annulus measures 0.53 cm (Joseph Z-score +1.15). Left Ventricle The left ventricular cavity size appears normal. The left ventricular systolic function is qualitatively within normal limits. There is no evidence of left ventricular hypertrophy. There are no obvious segmental wall motion abnormalities. Right Ventricle The right ventricle is not dilated. There is no evidence of right ventricular hypertrophy. The right ventricular systolic function is qualitatively within normal limits. Interventricular/Interatrial Septum There is a moderate sized foramen ovale with right to left shunting by color Doppler. There is no evidence of a ventricular septal defect. Aortic Valve The aortic valve appears normal. There is no evidence of valvular aortic stenosis. There is no evidence of aortic insufficiency by color or spectral Doppler. The aortic diameter at the annulus is 0.34 cm (Joseph Z-score +1.1). Pulmonic Valve The pulmonary valve appears normal. There is no evidence of valvular pulmonary stenosis. There is no evidence of pulmonary insufficiency by color or spectral Doppler. The pulmonary annulus measures 0.32 cm (Joseph Z-score -0.40). Great Vessels The ascending aorta does not appear dilated. The descending thoracic aorta does not appear dilated. There is no evidence of coarctation of the aorta. The main pulmonary artery appears normal. The branch pulmonary arteries appear normal. The aortic isthmus measures 0.25 cm (Joseph Z-score +0.58). Ascending aorta diameter measures 0.31 cm (Joseph Z-score -0.79). Circulation Normal Doppler flow pattern in the umbilical artery. The umbilicus has 2 umbilical arteries. There is a normal flow pattern in the umbilical vein. There is a normal flow pattern in the ductus venosus. There is normal intrauterine right to left flow across the ductus arteriosus. The rhythm is regular. The heart rate is 158 bpm. The AV interval is 116 msec. Pericardium and Pleura No pericardial effusion. No evidence of hydrops. CPT A complete two-dimensional echocardiogram was performed (2D, M-mode, Doppler and color flow Doppler). ? Reading Physician:11:33 AM Procedure Note Brandon Valente, - 06/08/2022 Echocardiogram Report Name: JUDY ZAPATA Study Date: 06/08/2022 Patient Location: : 1990 Gender: Female Age: 31 yrs Reason For Study: Family history of bicuspid aortic valve Ordering Physician: JOAN LOPEZ Referring Physician: JOAN LOPEZ Performed By: Tricia Lezama RDCS Exam Location: [facility]. Interpretation Summary This is a 19-4/7 week fetus. The estimated due date is 10/29/22. Average visualization for gestational age. 1. Levocardia, normal (S,D,S) segmental relationships. 2. No congenital heart disease identified.* 3. No significant valve dysfunction. Specifically no aortic stenosis, regurgitation, and no thickening of the valve tissue. 4. Qualitatively normal biventricular size and systolic function. 5. No arrhythmia detected. 6. No hydrops. *Prenatally cannot exclude certain septal defects, coarctation of theaorta, partial pulmonary venous anomalies, coronary anomalies, or subtle valve abnormalities, and cannot predict the persistence of structuresof circulation such as a PDA or PFO. The results of today's study were discussed with the patient. Please seeoffice note regarding the details of this consultation. Position Single intrauterine . Vertex presentation. Cardiac Position Levocardia. Cardiac Segments {S,D,S}. Veins The inferior vena cava appears normal. The superior vena cava appearsnormal. There is no evidence of an LSVC. Color and spectral Doppler flow patternsof at least one right and one left pulmonary vein appear normal. Atria There is no evidence of right atrial enlargement. There is no evidence ofleft atrial dilatation. Mitral Valve The mitral valve appears normal. There is a normal biphasic inflow patternacross the valve. There is no evidence of mitral regurgitation by color andspectral Doppler. The mitral diameter at the annulus measures 0.51 cm (BostonZ-score +0.64). Tricuspid Valve The tricuspid valve appears normal. There is a normal biphasic inflowpattern across the valve. There is no evidence of tricuspid insufficiency. Thetricuspid diameter at the annulus measures 0.53 cm (Joseph Z-score +1.15). Left Ventricle The left ventricular cavity size appears normal. The left ventricularsystolic function is qualitatively within normal limits. There is no evidence ofleft ventricular hypertrophy. There are no obvious segmental wall motionabnormalities. Right Ventricle The right ventricle is not dilated. There is no evidence of rightventricular hypertrophy. The right ventricular systolic function is qualitativelywithin normal limits. Interventricular/Interatrial Septum There is a moderate sized foramen ovale with right to left shunting bycolor Doppler. There is no evidence of a ventricular septal defect. Aortic Valve The aortic valve appears normal. There is no evidence of valvular aorticstenosis. There is no evidence of aortic insufficiency by color or spectral Doppler.The aortic diameter at the annulus is 0.34 cm (Joseph Z-score +1.1). Pulmonic Valve The pulmonary valve appears normal. There is no evidence of valvularpulmonary stenosis. There is no evidence of pulmonary insufficiency by color orspectral Doppler. The pulmonary annulus measures 0.32 cm (Joseph Z-score -0.40). Great Vessels The ascending aorta does not appear dilated. The descending thoracic aortadoes not appear dilated. There is no evidence of coarctation of the aorta. Themain pulmonary artery appears normal. The branch pulmonary arteries appearnormal. The aortic isthmus measures 0.25 cm (Joseph Z-score +0.58). Ascending aortadiameter measures 0.31 cm (Joseph Z-score -0.79). Circulation Normal Doppler flow pattern in the umbilical artery. The umbilicus has 2umbilical arteries. There is a normal flow pattern in the umbilical vein. There is anormal flow pattern in the ductus venosus. There is normal intrauterine right toleft flow across the ductus arteriosus. The rhythm is regular. The heartrate is 158 bpm. The AV interval is 116 msec. Pericardium and Pleura No pericardial effusion. No evidence of hydrops. CPT A complete two-dimensional echocardiogram was performed (2D, M- mode,Doppler and color flow Doppler). Electronically signed by: Brandon Valente MD 06/08/2022 Reading Physician:11:33 AM Joan Lopez CNM ECHO ORDERABLES documented in this encounter Visit Diagnoses Diagnosis Family history of bicuspid aortic valve Family history of other cardiovascular diseases documented in this encounter Care Teams Animal Caregiver Relationship Specialty Start Date End Date None None PCP - General 03/30/21 documented as of this encounter
--- OUTSIDE RECORDS SUMMARY | 2023-09-13 15:23 | XMS_ITS | Encounter Summary ---
Author Organization [facility] Address [address] [place] [address] Care Team Providers Care Barkeep Name Role Phone ANDREW Shrestha Benjamin Primary Care Provider Encounter Details Date Type Department Care Team (Late st Contact Info) Description 04/12/2022 Lab Requisition [facility] Pathology & Laboratory Medicine - [address] [address] Outr Resulting Lab, Provider Social History Tobacco [...] RNA BY PCR Routine 04/12/2022 11:18 EST HEPATITIS B SURFACE ANTIGEN Routine 04/12/2022 11:18 EST documented in this encounter Results * HEPATITIS B SURFACE ANTIGEN (04/12/2022 11:18 EST) Hep B Surface Ag Negative Negative 04/16/2022 15:56 EST [facility] Blood VENOUS BLOOD / Unknown 04/12/2022 11:18 EST 04/12/2022 22:35 EST Provider Outr Resulting Lab CHEMISTRY & BLOOD GAS ORDERABLES [facility] [address] [place] [address] * HEPATITIS C AB W REFLEX TO HCV RNA BY PCR (04/12/2022 11:18 EST) Hep C Antibody Negative Negative 04/17/2022 21:53 EST [facility] Blood VENOUS BLOOD / Unknown 04/12/2022 11:18 EST 04/12/2022 22:35 EST Provider Outr Resulting Lab CHEMISTRY & BLOOD GAS ORDERABLES Performing Organization Address City/State/[facility] Co de Phone Number [facility] [address] [place] [address] documented in this encounter Visit Diagnoses Not on filedocumented in this encounter Care Teams Barkeep Relationship Specialty Start Date End Date Alan Peterson MPA-C [address] [place] [address] PCP - General 10/02/20 documented as of this encounter
--- OUTSIDE RECORDS SUMMARY | 2023-09-13 15:23 | XMS_ITS | Encounter Summary ---
Author Organization [facility] Address [address] [place] [address] Care Team Providers Care Peoplesoft Business Analyst Name Role Phone ANDREW Shrestha Benjamin Primary Care Provider Encounter Details Date Type Department Care Team (Late st Contact Info) Description 10/21/2021 Lab Requisition [facility] Pathology & Laboratory Medicine - [facility] [address] [place] [address] Outr Resulting Lab, Provider Social History Tobacco [...] Procedure Name Priority Date/Time Associated Diagnosis Comments ZZCOVID-19 TEST [facility] LAB PCR Today 10/21/2021 15:00 EDT COVID-19 TESTING Routine 10/21/2021 15:0 0 EDT documented in this encounter Results * COVID-19 TEST [facility] LAB PCR (10/21/2021 15:00 EDT) Swab 10/21/2021 15:0 0 EDT 10/21/2021 21:48 EDT Provider Outr Resulting Lab MICROBIOLOGY - GENERAL ORDERABLES [facility] [address] [place] [address] * COVID-19 TESTING (10/21/2021 15:00 EDT) COVID-19 rt-PCR Result Negative Negative 10/22/2021 12:[address] [facility] Comment: This test has not been FDA cleared or approved. This test has been authorized by FDA under an EUA for use by authorized laboratories. This test has been authorized only for detection of nucleic acid from 2019-nCoV, not for any other viruses or pathogens. This test is only authorized for the duration of the declaration that circumstances exist justifying the authorization of emergency use of in vitro diagnostic tests for detection and/or diagnosis of 2019-nCoV under section 564(b)(1) of Act, 21 U.S.C ?? 360bbb-3(b) (1), unless the authorization is terminated or revoked sooner. Negative results do not preclude 2019-nCoV infection and should not be used as the sole basis for treatment or other patient management decisions. Negative results must be combined with clinical observations, patient history, and epidemiological information. Testing was performed using the pastora SARS-CoV-2 assay ([employer] on the Pastora 6800 System Performing Lab Pastora 68[address] [facility] Lab 10/22/2021 12:[address] [facility] Swab 10/21/2021 15:0 0 EDT 10/21/2021 21:48 EDT Provider Outr Resulting Lab MICROBIOLOGY - GENERAL ORDERABLES [facility] [address] [place] [address] documented in this encounter Visit Diagnoses Not on filedocumented in this encounter Care Teams Peoplesoft Business Analyst Relationship Specialty Start Date End Date Alan Peterson MPA-C [address] [place] [address] PCP - General 10/02/20 documented as of this encounter
--- OUTSIDE RECORDS SUMMARY | 2023-09-13 15:23 | XMS_ITS | Encounter Summary ---
Author Organization [facility] Address [address] [place] [address] Care Team Providers Care Mask Design Engineer Name Role Phone ANDREW Shrestha Benjamin Primary Care Provider Encounter Details Date Type Department Care Team (Late st Contact Info) Description 02/05/2020 Lab Requisition [facility] Pathology & Laboratory Medicine - [address] [address] Outr Resulting Lab, Provider Social History Tobacco [...] Comments CHLAMYDIA/N. GONORRHOEAE AMPLIFIED NUCLEIC ACID Routine 02/04/2020 17:20 EST documented in this encounter Results * CHLAMYDIA/N. GONORRHOEAE AMPLIFIED RNA (02/04/2020 17:20 EST) Neisseria gonorrhoeae Result Negative Negative 02/08/2020 15:42 EST [facility] Chlamydia trachomatis Result Negative Negative 02/08/2020 15:42 EST [facility] Swab ENTIRE VAGINA / Unknown 02/04/2020 17:20 EST 02/05/2020 19:53 EST Provider Outr Resulting Lab MICROBIOLOGY - GENERAL ORDERABLES [facility] [address] [place] [address] documented in this encounter Visit Diagnoses Not on filedocumented in this encounter Care Teams Mask Design Engineer Relationship Specialty Start Date End Date Alan Peterson MPA-C [address] [place] [address] PCP - General 10/02/20 documented as of this encounter
--- OUTSIDE RECORDS SUMMARY | 2023-09-13 15:23 | XMS_ITS | Referral Summary ---
Author Organization [facility] Address [address] [place] [address] Care Team Providers Care Guide Alpine Name Role Phone ANDREW Shrestha Benjamin Primary [...] Orientation Not on file Plan of Treatment Not on file Procedures Procedure Name Priority Date/Time Associated Diagnosis Comments HEPATITIS C AB W REFLEX TO HCV RNA BY PCR Routine 04/12/2022 11:18 EST from Last 3 Months or Most Recently Relevant to Health Maintenance Results * HEPATITIS C AB W REFLEX TO HCV RNA BY PCR (04/12/2022 11:18 EST) Hep C Antibody Negative Negative 04/17/2022 21:53 EST [facility] Blood VENOUS BLOOD / Unknown 04/12/2022 11:18 EST 04/12/2022 22:35 EST Provider Outr Resulting Lab CHEMISTRY & BLOOD GAS ORDERABLES [facility] [address] [place] [address] from Last 3 Months or Most Recently Relevant to Health Maintenance Care Teams Guide Alpine Relationship Specialty Start Date End Date Alan Peterson MPA-C [address] [place] [address] PCP - General 10/02/20
--- OUTSIDE RECORDS SUMMARY | 2023-09-13 15:23 | XMS_ITS | Clinical Summary ---
Author Organization [facility] [place] [address] Care Team Providers Care Policy Checker Name Role Phone None Primary Care Provider Unavailabl e Allergies No known active allergies Medications Medication Sig Dispensed Refills Start Date End Date Status vit/iron fum/folic ac ( 1+1 ORAL) Take by mouth. Active Active Problems No known active problems Immunizations Name Administration Dates Next Due Influenza Quadrivalent, Preservative Free 2021 MMR Vaccine LIVE 04/13/2021 Tdap 04/11/2021 Family History Medical History Relation Comments Heart Defect Father of Baby Heart Defect Father of Baby Relative Relation Status Comments Father of Baby Alive Father of Baby Relative Alive Social History Tobacco Use Types Packs/Day Years Used Date Smoking Tobacco: Never Smokeless Tobacco: Never Tobacco Cessation:Counseling Given: Not Answered Alcohol Use Standard Drinks/Week Comments Not Currently 0 (1 standard drink = 0.6 oz pur e alcohol) Sex and Gender Information Value Date Recorded Sex Assigned at Female 06/08/2022 4:55 PM EDT Gender Identity Female 06/08/2022 4:55 PM EDT Sexual Orientation Straight 06/08/2022 4: 55 PM EDT Last Filed Vital Signs Vital Sign Reading Time Taken Comments Blood Pressure 122/62 06/08/2022 11:00 AM EDT Pulse 89 03/30/2021 11:02 AM EST Temperature 36.7 ??C (98.1 ??F) 03/30/2021 1 1:02 AM EST Respiratory Rate 16 03/30/2021 11:0 2 AM EST Oxygen Saturation 100% 03/30/2021 11: 02 AM EST Inhaled Oxygen Concentration - - Weight 70.7 kg (155 lb 14.4 oz) 023 11:00 AM EDT Height 170.2 cm (5' 7) 03/30/2021 11:0 2 AM EST stated Body Mass Index 24.42 03/30/2021 11:02 AM EST Plan of Treatment Health Maintenance Due Date Last Done Comments HIV screen 12/21/2009 Hepatitis C Screening 12/21/2009 Hepatitis B vaccine (0-59 yrs) (1) 12/21/2010 HPV test 12/21/2021 PAP Smear 12/21/2021 Covid-19 Vaccine (1 - 2022- season) 2022 Influenza (Flu) vaccine (1 o f 1 - Influenza standard series) 11/03/2023 04/07/2021 Tetanus vaccine 04/11/2031 04/11/2021 Tdap adult Completed 04/11/2021 Care Teams Policy Checker Relationship Specialty Start Date End Date None None PCP - General 03/30/21
--- OUTSIDE RECORDS SUMMARY | 2023-09-13 15:23 | XMS_ITS | Encounter Summary ---
Author Organization [facility] [place] [address] Care Team Providers Care Critical Care Unit Nurse Name Role Phone None Primary Care Provider Unavailabl e Encounter Details Date Type Department Care Team (Latest Contact Info) Description 06/07/2022 Travel Social History Tobacco Use Types Packs/Day [...] on filedocumented in this encounter Care Teams Critical Care Unit Nurse Relationship Specialty Start Date End Date None None PCP - General 03/30/21 documented as of this encounter
--- OUTSIDE RECORDS SUMMARY | 2023-09-13 15:23 | XMS_ITS | Encounter Summary ---
Author Organization [facility] Address [address] [place] [address] Care Team Providers Care Lead Process Engineer Name Role Phone ANDREW Shrestha Benjamin Primary Care Provider Encounter Details Date Type Department Care Team (Late st Contact Info) Description 10/20/2020 Lab Requisition [facility] Pathology & Laboratory Medicine - [facility] [address] [place] [address] [address]acey Murphy [address] [place] [address] [place] [address] Encounter for other general examination Social History [...] Procedure Name Priority Date/Time Associated Diagnosis Comments SURGICAL PATHOLOGY Today 10/20/2020 7: 40 EDT Encounter for other general examination documented in this encounter Results * SURGICAL PATHOLOGY (10/20/2020 7:40 EDT) Note to Patient The following pathology results have been interpreted by your pathologist and may be available to you before your health provider has had the opportunity to review them. Please allow time for your provider to receive these results and explore management options, if applicable. 10/26/2020 14:40 EDT [facility] Final Diagnosis A. INTRAUTERINE CONTENTS, EVACUATION: - Chorionic villi, decidua, and gestational endometrium. 10/26/2020 14:40 EDT [facility] Attestation There was significant resident/fellow involvement in the diagnostic evaluation of this case. By the signature below, the attending physician certifies that they have personally conducted a gross and/or microscopic examination of the described specimens and rendered or confirmed the above diagnosis. 10/26/2020 14:40 T [facility] at 1440 Clinical History Missed 10/26/2020 14:40 [facility] Gross Description A. Received in formalin labelled with proper patient identification (initials S, M) and uterine contents is an aggregate of shaver-brown soft and membranous tissues with admixed blood clot and mucus (13 x 7.5 x 1.0 cm in aggregate) containing villous tissue and gestational sac. tissue is not identified. Credit Associate sections submitted in A1-A3. ROSENDO MILLER MD PHD 10/21/2020 14:30 10/26/2020 14:40 T [facility] Resident/Isrrael w: Rosendo Miller MD PHD 10/26/2020 14:40 T [facility] Performing Lab [facility] 10/26/2020 14:40 [facility] Scanned Images 10/26/2020 14:40 [facility] Tissue [employer]ODU[employer] TISSUE SPECIMEN / Unknown 10/20/2020 7:40 EDT 10/20/2020 17:41 EDT Macey Murphy PATHOLOGY ORDERABLES [facility] [address] [place] [address] documented in this encounter Visit Diagnoses Diagnosis Encounter for other general examination documented in this encounter Care Teams Lead Process Engineer Relationship Specialty Start Date End Date Alan Peterson MPA-C [address] [place] [address] PCP - General 10/02/20 documented as of this encounter
--- OUTSIDE RECORDS SUMMARY | 2023-09-13 15:23 | XMS_ITS | Encounter Summary ---
Author Organization [facility] [place] [address] Care Team Providers Care Medical Examiner Name Role Phone None Primary Care Provider Unavailabl e Reason for Referral * Diagnostic Test (Routine) - Closed Specialty Diagnoses / Procedures Referred By Contac t Referred To Contact Radiology Diagnoses Family history of congenital anomalies Procedures US OB Detailed Morphology Joan Lopez CNM [address] [place] [address] [address] [place] [address] [facility] [place] [address] Referral ID Status Reason Start Date Expiration Date V isits Requested Visits Authorized [id number] Closed Specialty Service Requested 04/20/2022 10/19/2023 1 1 Reason for Visit * Diagnostic Test (Routine) - Closed Specialty Diagnoses / Procedures Referred By Contac t Referred To Contact Radiology Diagnoses Family history of congenital anomalies Procedures US OB Detailed Morphology Joan Lopez CNM [address] [place] [address] [address] [place] [address] [facility] [place] [address] Referral ID Status Reason Start Date Expiration Date V isits Requested Visits Authorized [id number] Closed Specialty Service Requested 04/20/2022 10/19/2023 1 1 Encounter Details Date Type Department Care Team (Latest Contact Info) Description 06/08/2022 11:41 AM EDT - 06/08/2022 11:59 PM EDT Hospital [place] [address] [address] Lopez [address] [place] [address] Family history of congenital anomalies Discharge Disposition: Home Social History Tobacco Use [...] Sig Dispensed Refills Start Date End Date vit/iron fum/folic ac ( 1+1 ORAL) Take by mouth. documented as of this encounter Plan of Treatment Not on file documented as of this encounter Procedures Procedure Name Priority Date/Time Associated Diagnosis Comments US OB DETAILED MORPHOLOGY Routine 06/08/2022 1:59 PM EDT Family history of congenital anomalies documented in this encounter Results * US OB Detailed Morphology (06/08/2022 1:59 PM EDT) Anatomical Region Laterality Modality Pelvis, Abdomen Ultrasound 06/08/2022 12:5 7 PM EDT Impressions 06/08/2022 2:02 PM EDT 2nd Trimester - Detailed Morphology - Summary Single intrauterine with a gestational age of 19w 4d based on Early Ultrasound ??(03/15/22) Composite age based on the current ultrasound alone is 20w 1d. Current growth parameters are consistent with prior dating indicating normal growth. Amniotic fluid volume is subjectively normal for gestational age. Transvaginal ultrasound done for cervical length. No change with fundal pressure. Lower uterine contraction. Placental edge appears low lying on transvaginal ultrasound. Detailed anatomic evaluation was performed and no structural abnormalities are noted. Limited visualization of abdominal cord insertion due to position. Thank you for letting us participate in the care of this patient. If you are a health care provider and have any questions regarding this report, please contact the number above. For patients who have questions, please contact the health home care attendant that requested your imaging first. ? Nancy Mendez, Staff Physician Electronically Signed Corrected Final Report ??06/08/2022 02:39 pm Narrative 06/08/2022 2:02 PM EDT OBSTETRICS REPORT ? (Corrected Final 06/08/2022 02:39 pm) PATIENT INFO: ID #: ? [id number] ?: ??[birth year] (31 yrs)(F) Name: ? JUDY ? Visit Date: 06/08/2022 12:57 pm PERFORMED BY: Performed By: ? Cheri Muller RDMS Attending: ?Andrea JOSE, Nancy Zhang Referred By: ?JOAN LOPEZ Location: ? [facility]) PROVIDED: [facility] - Detailed Morphology - [id number] ? [id number] UOBTVCER - Transvaginal ??2nd Trimester - ?87333 Cervical Length - [id number] INDICATIONS: 19 weeks gestation of ?Z3A.19 BIUSPID AORTA; FOB AND HIS FATHER; TARGETED MORPHOLOGY VITAL SIGNS: Weight (lb): 155.0 Height: ?5'7 ? BMI: ? 24.27 EVALUATION: Num Of Fetuses: ? 1 Heart Rate(bpm): ??152 Cardiac Activity: ? Observed, normal rhythm Presentation: ? Cephalic Placenta: ? Posterior - Low lying P. Cord Insertion: ?Within Normal Limits Amniotic Fluid LOUISE FV: ?Subjectively normal for gestational age --------- BIOMETRY: --------- BPD: ?47.2 ??mm ? G.Age: ?? 20w 2d OFD: ?62.0 ??mm HC: ?175.0 ??mm ? G.Age: ?? 20w 0d AC: ?148.8 ??mm ? G.Age: ?? 20w 1d FL: ? 31.9 ??mm ? G.Age: ?? 19w 6d HUM: ?32.0 ??mm ? G.Age: ?? 20w 5d CER: ?19.8 ??mm ? G.Age: ?? 18w 6d NFT: ?4.66 ??mm NB: ?6.1 ??mm LV: ?6.7 ??mm CM: ?4.8 ??mm CI: ?76.1 ??% ? 70 - 86 FL/HC: ? 18.2 ??% ? 16.8 - 19.8 HC/AC: ? 1.18 ?1.09 - 1.39 FL/BPD: ?67.6 ??% FL/AC: ? 21.4 ??% ? - Est. FW: ? 329 ??gm ?0 lb 12 oz OB HISTORY: : ?2 ?SAB: ?? 1 GESTATIONAL AGE: LMP: ? 20w 2d ?Date: ??01/17/22 ? JARED: ?? 10/24/22 U/S Today: ? 20w 1d ?JARED: ?? 10/25/22 Best: ?19w 4d ?? Det. By: ??Early ?JARED: ?? 10/29/22 ? Ultrasound ? (03/15/22) TARGETED ANATOMY: Central Nervous System Calvarium/Cranial V.: ??Within Normal Limits Intracranial [place]: ? Visualized Cavum: ? Visualized Parenchyma: ?Visualized Lateral Ventricles: ?Within Normal Limits Choroid Plexus: ?Visualized Cereb./Vermis: ? Within Normal Limits Cisterna Magna: ?Within Normal Limits Midline Falx: ?Visualized Spine Cervical: ?Visualized Thoracic: ?Visualized Lumbar: ?Visualized Sacral: ?Visualized Shape/Curvature: ? Visualized Head/Neck Face: ?Visualized Lips: ?Visualized Neck: ?Visualized Nuchal Fold: ? Within Normal Limits Nasal Bone: ?Present Profile: ? Visualized Orbits/Eyes: ? Visualized Mandible: ?Visualized Maxilla: ? Visualized Thorax Thoracic Contour: ?Visualized Lungs: ? Visualized 4 Chamber View: ?Visualized Cardiac Activity: ?Normal Rhythm Rt Outflow Tract: ?Visualized Lt Outflow Tract: ?Visualized Aortic Arch: ? Visualized Ductal Arch: ? Visualized SVC: ? Visualized Interventr. Septum: ?Visualized Cardiac [place]: ?Visualized Diaphragm: ? Visualized 3 Vessel View: ? Visualized 3 V Trachea View: ?Visualized IVC: ? Visualized Crossing: ?Visualized Abdomen Ventral Wall: ?Limited Views Cord Insertion: ?Limited Views Situs: ? Normal Stomach: ? Visualized Liver: ? Visualized Lt Kidney: ? Visualized Rt Kidney: ? Visualized Bladder: ? Visualized Bowel: ? Visualized Extremities Lt Humerus: ?Visualized Rt Humerus: ?Visualized Lt Forearm: ?Visualized Rt Forearm: ?Visualized Lt Hand: ? Visualized Rt Hand: ? Visualized Lt Femur: ?Visualized Rt Femur: ?Visualized Lt Lower Leg: ?Visualized Rt Lower Leg: ?Visualized Lt Foot: ? Visualized Rt Foot: ? Visualized Other Umbilical Cord: ?3 vessel cord Genitalia: ? Female CERVIX UTERUS ADNEXA: Cervix Length: ?3.8 ??cm. Closed Right Ovary Not visualized Left Ovary Size(cm) ? 1.6 ??x ?? 1.3 ?x ??1.5 ? Vol(ml): 1.6 limited visualization Procedure Note Nancy Mendez MD - 06/08/2022 OBSTETRICS REPORT (Corrected Final 06/08/2022 02:39 pm) PATIENT INFO: ID #: [id number] : [birth year] (31 yrs)(F) Name: JUDY ZAPATA Visit Date: 06/08/2022 12:57 pm PERFORMED BY: Performed By: Cheri Muller RDMS Attending: Nancy Mendez MD Referred By: JOAN LOPEZ Location: [facility]) PROVIDED: [facility] - Detailed Morphology - [id number] UOBTVCER - Transvaginal 2nd Trimester - 47961 Cervical Length - [id number] INDICATIONS: 19 weeks gestation of Z3A.19 BIUSPID AORTA; FOB AND HIS FATHER; TARGETED MORPHOLOGY VITAL SIGNS: Weight (lb): 155.0 Height: 5'7 BMI: 24.27 EVALUATION: Num Of Fetuses: 1 Heart Rate(bpm): 152 Cardiac Activity: Observed, normal rhythm Presentation: Cephalic Placenta: Posterior - Low lying P. Cord Insertion: Within Normal Limits Amniotic Fluid LOUISE FV: Subjectively normal for gestational age --------- BIOMETRY: --------- BPD: 47.2 mm G.Age: 20w 2d OFD: 62.0 mm HC: 175.0 mm G.Age: 20w 0d AC: 148.8 mm G.Age: 20w 1d FL: 31.9 mm G.Age: 19w 6d HUM: 32.0 mm G.Age: 20w 5d CER: 19.8 mm G.Age: 18w 6d NFT: 4.66 mm NB: 6.1 mm LV: 6.7 mm CM: 4.8 mm CI: 76.1 % 70 - 86 FL/HC: 18.2 % 16.8 - 19.8 HC/AC: 1.18 1.09 - 1.39 FL/BPD: 67.6 % FL/AC: 21.4 % 20 - 24 Est. FW: 329 gm 0 lb 12 oz OB HISTORY: : 2 SAB: 1 GESTATIONAL AGE: LMP: 20w 2d Date: 01/17/22 JARED: 10/24/22 U/S Today: 20w 1d JARED: 10/25/22 Best: 19w 4d Det. By: Early JARED: 10/29/22 Ultrasound (03/15/22) TARGETED ANATOMY: Central Nervous System Calvarium/Cranial V.: Within Normal Limits Intracranial [place]: Visualized Cavum: Visualized Parenchyma: Visualized Lateral Ventricles: Within Normal Limits Choroid Plexus: Visualized Cereb./Vermis: Within Normal Limits Cisterna Magna: Within Normal Limits Midline Falx: Visualized Spine Cervical: Visualized Thoracic: Visualized Lumbar: Visualized Sacral: Visualized Shape/Curvature: Visualized Head/Neck Face: Visualized Lips: Visualized Neck: Visualized Nuchal Fold: Within Normal Limits Nasal Bone: Present Profile: Visualized Orbits/Eyes: Visualized Mandible: Visualized Maxilla: Visualized Thorax Thoracic Contour: Visualized Lungs: Visualized 4 Chamber View: Visualized Cardiac Activity: Normal Rhythm Rt Outflow Tract: Visualized Lt Outflow Tract: Visualized Aortic Arch: Visualized Ductal Arch: Visualized SVC: Visualized Interventr. Septum: Visualized Cardiac [place]: Visualized Diaphragm: Visualized 3 Vessel View: Visualized 3 V Trachea View: Visualized IVC: Visualized Crossing: Visualized Abdomen Ventral Wall: Limited Views Cord Insertion: Limited Views Situs: Normal Stomach: Visualized Liver: Visualized Lt Kidney: Visualized Rt Kidney: Visualized Bladder: Visualized Bowel: Visualized Extremities Lt Humerus: Visualized Rt Humerus: Visualized Lt Forearm: Visualized Rt Forearm: Visualized Lt Hand: Visualized Rt Hand: Visualized Lt Femur: Visualized Rt Femur: Visualized Lt Lower Leg: Visualized Rt Lower Leg: Visualized Lt Foot: Visualized Rt Foot: Visualized Other Umbilical Cord: 3 vessel cord Genitalia: Female CERVIX UTERUS ADNEXA: Cervix Length: 3.8 cm. Closed Right Ovary Not visualized Left Ovary Size(cm) 1.6 x 1.3 x 1.5 Vol(ml): 1.6 limited visualization IMPRESSION 2nd Trimester - Detailed Morphology - Summary Single intrauterine with a gestational age of 19w 4d based on Early Ultrasound (03/15/22) Composite age based on the current ultrasound alone is 20w 1d. Current growth parameters are consistent with prior dating indicating normal growth. Amniotic fluid volume is subjectively normal for gestational age. Transvaginal ultrasound done for cervical length. No change with fundal pressure. Lower uterine contraction. Placental edge appears low lying on transvaginal ultrasound. Detailed anatomic evaluation was performed and no structural abnormalities are noted. Limited visualization of abdominal cord insertion due to position. Thank you for letting us participate in the care of this patient. If you are a health care provider and have any questions regarding this report, please contact the number above. For patients who have questions, please contact the health home care attendant that requested your imaging first. Nancy Mendez, Staff Physician Electronically Signed Corrected Final Report 06/08/2022 02:39 pm Joan Lopez CNM [facility] OB ORDERABLE S documented in this encounter Visit Diagnoses Diagnosis Family history of congenital anomalies documented in this encounter Care Teams Medical Examiner Relationship Specialty Start Date End Date None None PCP - General 03/30/21 documented as of this encounter
--- OUTSIDE RECORDS SUMMARY | 2023-09-13 15:23 | XMS_ITS | Encounter Summary ---
Author Organization [facility] Address [facility] [place] [address] Care Team Providers Care Media Clerk Name Role Phone None Primary Care Provider Unavailabl e Reason for Visit * Reason Comments Family History Father of fetus - bi cuspid aortic valve * Consultation (Routine) - Closed Specialty Diagnoses / Procedures Referred By Dre t Referred To Contact Obstetrics and Gynecology Diagnoses Family history of other congenital malformations, deformations and chromosomal abnormalities Encounter for supervision of normal , unspecified, unspecified trimester Bee Lopez[address] [place] [address] [facility] [employer] [address] [place] [address] Referral ID Status Reason Start Date Expiration Date Visits Re quested Visits Authorized [id number] Closed 04/13/2022 04/13/2023 1 1 Encounter Details Date Type Department Care Team (Late st Contact Info) Description 06/08/2022 12:00 PM EDT Office Visit [place]stetrics [place] [address] Davey Lange, [facility] DR OBSTETRICS & [place] [address] Encounter for procreative genetic counseling Social History Tobacco Use Types Packs/Day Years [...] as of this encounter Progress Notes * Davey Lange, [facility] - 06/08/2022 12:00 PM EDT Reproductive Genetics Maday Zapata is a 31 y.o. female currently at 19w4d gestation. I met with Maday for a 40-minute office visit at the [facility]. She was accompanied by her partner, Yonis. Referring Provider: Bee Lopez CNM [address] [place] [address] [address] [place] [address] Chief Concern Patient presents with ??? Family History Father of fetus - bicuspid aortic valve Patient History No past medical history on file. ??? Ancestry: [place] Partner History ??? Name: Pritesh Zapata ??? : 01/18/1994 ??? Sex: Male ??? Medical History: Bicuspid aortic valve ??? Ancestry: White Family History ?? Developmental or intellectual disability: Not assessed ??? Congenital anomalies: Bicuspid aortic valve (Yonis and his father) ??? Recurrent loss or stillbirth: Not assessed ??? Known genetic conditions: No ??? Consanguinity: No A pedigree was obtained and will be scanned into Maday's electronic medical record. OB History # Outcome Date GA Lbr Buddy/2nd Weight Sex Delivery Anes PTL Lv 2 Current 1 SAB 10/2020 Patient's last menstrual period began on 01/13/2022. Ultrasound 03/15/2022: Predicted gestational age 7w 3d by CRL. Estimated Date of Delivery: 10/29/2022 based on ultrasound dating. Genetic Screening Results Test Result ??? Panorama screen Low risk for common aneuploidies and triploidy ??? Cystic fibrosis carrier screen Negative for over 500 CFTR variants ??? Spinal muscular atrophy carrier screen Negative for SMN1 deletion ??? Thalassemia carrier screen Within normal limits (MCV 92 fL) Assessment 1. Reproductive partner with bicuspid aortic valve: Bicuspid aortic valve is the most common congenital cardiac malformation, occurring in approximately 1% to 2% of the general population. Bicuspid aortic valves cluster in families and are found in about 9% of first-degree relatives of affected individuals. Studies also show that the aortic root is functionally abnormal and dilation is present inabout one-third of first-degree relatives of patients with bicuspid aortic valve. These findings suggest that first-degree relatives should have a screening echocardiogram to be evaluated for aortic valve malformation and dilated ascending aorta. Some families exhibit apparent autosomal dominant inheritance of bicuspid aortic valve and other forms of left ventricular outflow tract obstruction (LVOTO), such as hypoplastic left heart or left ventricle, aortic valve stenosis, hypoplastic aortic arch, and coarctation of the aorta. In these families, LVOTO can have a wide clinical spectrum, with some members having severe anomalies such as hypoplastic left heart and others having only minor valve anomalies. Plan ?? Maday had a echocardiogram prior to this visit. Please refer to the report and Dr. Valente's note for details. ?? Detailed morphology ultrasound and maternal- medicine consultation today as scheduled. documented in this encounter Plan of Treatment Not on file documented as of this encounter Visit Diagnoses Diagnosis Encounter for procreative genetic counseling documented in this encounter Care Teams Media Clerk Relationship Specialty Start Date End Date None None PCP - General 03/30/21 documented as of this encounter
--- OUTSIDE RECORDS SUMMARY | 2023-09-13 15:23 | XMS_ITS | Encounter Summary ---
Author Organization [facility] Address [address] [place] [address] Care Team Providers Care Digital Hardware Design Engineer Name Role Phone ANDREW Shrestha Benjamin Primary Care Provider Encounter Details Date Type Department Care Team (Late st Contact Info) Description 04/12/2022 Lab Requisition [facility] Pathology & Laboratory Medicine - [facility] [address] [place] [address] Outr Resulting Lab, Provider Social History Tobacco [...] Procedure Name Priority Date/Time Associated Diagnosis Comments HIV 1/2 ANTIGEN AND ANTIBODY, 4TH GENERATION Routine 04/12/2022 11:18 EST documented in this encounter Results * HIV 1/2 ANTIGEN AND ANTIBODY, 4TH GENERATION (04/12/2022 11:18 EST) HIV 1 and 2 Antibody/p24 Antigen, 4th Generation Negative Negative 04/13/2022 14:17 EST [facility] Comment:If acute HIV-1 infec tion is suspected in a high risk patient, submit plasma specimen for HIV-1 RNA quantitation test. Blood VENOUS BLOOD / Unknown 04/12/2022 11:18 EST 04/12/2022 22:35 EST Narrative [facility] - 04/13/2022 14:17 EST Fourth Generation assay performed on the [employer] XPT. Provider Outr Resulting Lab IMMUNOLOGY A ND SEROLOGY ORDERABLES [facility] [address] [place] [address] documented in this encounter Visit Diagnoses Not on filedocumented in this encounter Care Teams Digital Hardware Design Engineer Relationship Specialty Start Date End Date Alan Peterson MPA-C [address] [place] [address] PCP - General 10/02/20 documented as of this encounter
== END 2023-09-13 15:19 | disposition home or self-care (01) ==
LOC: NCHCN 15:18
PROVIDERS: PCP Physician Assistant Medical; Visit Provider Student in an Organized Health Care Education/Training Program
DX: Z20.818 Contact with and (suspected) exposure to other bacterial communicable diseases (principal)
CPT/HCPCS: 87070

== ENCOUNTER 2024-05-02 17:11 | Outpatient (REF) | payer BC, SELFPAY | END 2024-05-02 17:12 | disposition home or self-care (01) | LOC: LBN 17:11 | PROVIDERS: PCP Physician Assistant Medical; Visit Provider Physician Assistant Medical | DX: J02.9 Acute pharyngitis, unspecified (principal) | CPT/HCPCS: 87070 ==

== ENCOUNTER 2024-06-29 17:26 | Emergency (ER) | payer BC, SELFPAY ==
--- NOTE | 2024-06-29 17:30 | RT.EKG_ITS ---
APPROVED REPORT Exam: Resting ECG Reason for Exam: Chest Pain Patient Location: E HR:92 bpm ECG Measurements Heart Rate 92 AXIS NC 135 P 59 QRSd 86 QRS 72 QT 363 T 60 QTc 448 Conclusion Sinus rhythm...normal P axis, V-rate 60- 99
[2024-06-29 17:35] VITALS: BP 139/90; PULSE 96; RESP 20; TEMP 37.3; O2SAT 100
--- NOTE | 2024-06-29 18:24 | ED.GENADUL_ITS ---
Discharge Plan Disposition Patient Disposition: Home Condition: Stable Discharge Details Clinical Impression: Chest pain Primary Care Provider: Alan Peterson V ED Provider: Martin Soares Home Meds and New Rx's Prescriptions: Continued acetaminophen [Tylenol] 325 mg capsule 325 mg PO ONCE PRN ibuprofen 200 mg capsule 200 mg PO Q6H PRN ascorbic acid (vitamin C) [Vitamin C] 500 mg tablet 500 mg PO DAILY Discharge Instructions Additional Instructions: Your lab work did not show any concerning findings at this time. If you continue to have symptoms in 1 to 2 weeks follow-up with your primary care provider. If you feel significantly more ill or have new symptoms such as persistent vomiting return to the emergency department for reevaluation. HPI General Mode of arrival: ambulatory . Date/Time Provider Initiated Documentation: 06/29/24 17:40 . Limitations to Documentation: no limitations . Information obtained by: patient . History of Present Illness 33 year old F presents to the emergency department with the chief complaint of chest pain, anxiety, Patient started experiencing this hour(s) (2) and it has been constant. No relieving factors improve symptom(s), No exacerbating factors reported . Patient notes chest pain and shortness of breath; denies fev er/chills and nausea/vomiting. Patient did receive the following treatments prior to arrival, none Related Data Home Medications ?Medication ?Instructions ?Recorded ?Confirmed acetaminophen 325 mg capsule 325 mg PO ONCE PRN 05/11/22 06/29/24 (Tylenol) ibuprofen 200 mg capsule 200 mg PO Q6H PRN 11/12/22 06/29/24 ascorbic acid (vitamin C) 500 mg 500 mg PO DAILY 06/29/24 06/29/24 tablet (Vitamin C) Allergies Allergy/AdvReac Type Severity Reaction Status Date / Time No Known Allergies Allergy Verified 06/29/24 17:45 General Stated Complaint: Chest Pain HELEN: 3 Review of Systems All systems reviewed & are unremarkable except as noted in HPI and below Constitutional Constitutional: Denies chills, Denies fever(s) and Denies weakness Cardiovascular Cardiovascular: Reports chest pain and Reports dyspnea Respiratory Respiratory: Denies cough and Reports dyspnea Gastrointestinal Gastrointestinal: Denies abdominal pain, Denies nausea and Denies vomiting Neurologic Neurologic: Denies weakness Psychiatric Psychiatric: Reports anxiety Exam Const General: no acute distress and anxious Orientation: alert HENMT Head: normal to inspection Ears: external ears normal General nose exam: external nose normal Mouth: moist mucous membranes Eyes General: appearance normal, both eyes and all related structures Neck Neck: normal visual inspection Resp Effort & Inspection: normal respiratory effort and able to speak in complete sentences Auscultation: clear to auscultation bilaterally Cardio Jugular venous pressure: no JVD Rate: regular rate Heart Sounds: no murmurs GI Palpation: soft and nontender Skin General skin exam: no rashes or lesions noted Neuro General: patient alert and patient oriented x3 Extrem General: normal to inspection Psych Mental Status: mental status grossly normal Course Vital Signs Vital signs: Vital Signs Temperature 37.3 C 06/29/24 17:35 Pulse 96 H 06/29/24 17:35 Respiratory Rate 20 06/29/24 17:35 Blood Pressure 139/90 06/29/24 17:35 Pulse Oximetry 100 06/29/24 17:35 Temperature 37.3 C 06/29/24 17:35 Pulse 96 H 06/29/24 17:35 Respiratory Rate 20 06/29/24 17:35 Blood Pressure 139/90 06/29/24 17:35 Blood Pressure Position Sitting 06/29/24 17:35 Pulse Oximetry 100 06/29/24 17:35 Oxygen Delivery Method Room Air 06/29/24 17:35 Oxygen Flow Rate 0 06/29/24 17:35 Medical Decision Making 33-year-old female who states has a history of anxiety comes in with several hours of anterior chest achiness, shortness of breath and feeling anxious. She does not have any diaphoresis or nausea vomiting. She is speaking full sentences and appears mildly anxious on exam. She is clear lung sounds, no JVD, no leg swelling or calf tenderness. Given her complaints we will proceed with CBC, CMP and troponins and also D-dimer. Will treat her symptoms with Ativan and reassess. Labs including delta troponin negative, she is stable and still appears well. She did feel significant better after Ativan. Advised to follow-up with her PCP if continuing to have symptoms in 1 to 2 weeks and return precautions given Differential Diagnosis Differential Diagnosis: Anxiety, PE, NSTEMI Lab Data Lab results reviewed: Yes I reviewed the patient's lab results. ECG Data Attestation: I personally reviewed and interpreted this ECG (s) as follows: Prior ECG tracings: available for review Interpretation: sinus rate of 92 no stemi Quality:SDOH Health Related Social Needs: No Data to Display PFSH All Active Problems (Updated 06/29/24 @ 21:51 by Martin Soares MD) Chest pain (Acute) Need for prophylactic vaccination and inoculation against varicella (Acute) Influenza vaccine needed (Acute) Back pain (Acute) Term delivered (Acute) Maternal varicella, non-immune (Acute) Medical History (Updated 06/29/24 @ 21:51 by Martin Soares MD) Term of female Gestational diabetes mellitus (GDM) affecting Low lying placenta nos or without hemorrhage, second trimester Dysuria during in second trimester Benign breast cyst in female History of abnormal cervical Pap smear Family history of congenital heart defect and his father Delayed menses Surgical History S/P dilation and curettage Family History (Updated 04/12/22 @ 10:31 by Bee Lopez CNM) Father Heart disease age 65 Sister Thyroid disease Social History Smoking/Tobacco Use Status: Never Smoking risk assessment performed?: Yes Alcohol Intake: never Drug use: Never Substance use type: does not use Housing: house Do you feel safe at home: Yes Do you feel safe in your relationship?: Yes History History 2 Para 1 Hx # Term Pregnancies 1 Multiple births 0 Hx # Pregnancies 0 Ectopic pregnancies 0 AB induced 0 Hx Number of Living Children 1 AB spontaneous 1 Past Pregnancies Del. Date GA/Weeks # Preg Succ Route Wgt Sex Labor Lgth Anesth esia Location Prov Complic 10/20/20 No 10/30/22 40 No Yes vaginal 3614.564 g Female 19hrs 0min regional [facility] Delivery Date: 10/20/20 Last Updated by: Bee Lpoez CNM 9 weeks. demise identified by US Delivery Date: 10/30/22 Last Updated by: EDGAR Garcia; 2nd degree perineal laceration, repaired PAWSS Have you Been Recently Intoxicated or Drunk Within the Last 30 days?: No Have you Ever Experienced Previous Episodes of Alcohol Withdrawal?: No Have you ever Experienced Withdrawal Seizures?: No Have you ever Experienced Delirium Tremens(DT)s?: No Have you ever undergone Alcohol Rehabilitation Treatment (i.e, inpt ot outpatient treatment programs)?: No Have you ever Experienced Blackouts?: No Have you ever Combined Alcohol with other Downers within the last 90 days?: No Have you ever Combined Alcohol with any other Substance of Abuse during the last 90 days?: No Positive Blood Alcohol level on Presentation? [PCS.BAL]: No Evidence of Increased Autonomic Activity (i.e. HR>120, tremor, sweating, agitation, nausea)?: No Result: 0
[2024-06-29 18:35] LABS: Abs Immature Grans 0.01 10^3/uL (0.0-0.06); Absolute Basophil Count 0.05 10^3/uL (0.0-0.2); Absolute Eosinophil Count 0.46 10^3/uL (0.0-0.7); Absolute Lymphocyte Count 1.58 10^3/uL (1.2-3.4); Absolute Monocyte Count 0.32 10^3/uL (0.1-0.8); Basophils % 0.9 %; Eosinophils % 8.6 %; HCT 38.8 % (36.0-46.0); HGB 12.9 g/dL (11.2-15.7); Immature Grans % 0.2 %; Lymphocytes % 29.7 %; MCH 31.5 pg (27.0-33.0); MCHC 33.2 % (32.0-36.0); MCV 95 fL (80-95); MPV 9.2 fL (8.0-11.0); Neutrophils % 54.6 %; Platelet Count 260 10^3/uL (130-400); RDW 11.8 % (11.7-14.6); RDW-SD 41.2 fL; WBC 5.32 10^3/uL (4.4-10.8)
[2024-06-29 18:52] LABS: ALT 137 U/L (14-59); AST 58 U/L (15-37); Albumin 4.1 g/dL (3.4-5.0); Alkaline Phosphatase 78 U/L (46-116); Anion Gap 9.3 mmol/L (3-11); BUN 15 mg/dL (7-18); Bilirubin, Total 0.2 mg/dL (0.2-1.0); CO2 28.7 mmol/L (21.0-32.0); CREATININE 0.8 mg/dL (0.55-1.02); Calcium 9.4 mg/dL (8.5-10.1); Chloride 103 mmol/L (98-107); Estimated GFR 100.33 (mL/min/1.73m2); Glucose 119 mg/dL (74-106); Magnesium 2.2 mg/dL (1.8-2.4); Potassium 4.5 mmol/L (3.5-5.1); Sodium 141 mmol/L (136-145); Total Protein 8.2 g/dL (6.4-8.2)
[2024-06-29 18:58] LABS: Troponin I < 4 ng/L (<or=51)
[2024-06-29 19:02] LABS: D-Dimer 106 ng/mlFEU (<500)
[2024-06-29] MEDS: Normal Saline 1,000 ML 1000 ML IV (19:04)
[2024-06-29] MEDS: LORazepam 2 MG/ML VIAL 0.5 MG IVP (19:06)
[2024-06-29 19:07] VITALS: RESP 18
[2024-06-29 19:55] LABS: Troponin I 4 ng/L (<or=51)
[2024-06-29 21:59] VITALS: BP 108/68; PULSE 85; RESP 18; O2SAT 98
== END 2024-06-29 21:59 | disposition home or self-care (01) ==
PROVIDERS: Emergency Provider Emergency Medicine; PCP Student in an Organized Health Care Education/Training Program
DX: R07.9 Chest pain, unspecified (principal); R06.02 Shortness of breath; F41.9 Anxiety disorder, unspecified
CPT/HCPCS: 99284 ×2; 36415; 96374; 80053; 93005; 96361; 83735; 84484; 85025; 85379; 93010; J2060